=== PATIENT | female | born 1950 | race Caucasian/White ===

== ENCOUNTER 2016-04-03 23:34 | Inpatient (IN) ==
[2016-04-04 00:10] LABS: Basophils % 0.4 %; Eosinophils % 1.3 %; Hemoglobin 9.1 g/dL (11.5-15.4); Monocytes % 5.2 %
[2016-04-04 00:12] LABS: Eosinophils # 0.1 K/mcL (0.0-0.6); Hematocrit 31.9 % (35.3-44.9); Immature Granulocytes % 0.3 % (0-4); Lymphocytes # 2.3 K/mcL (0.6-4.6); Lymphocytes % 28.7 %; Mean Corpuscular HGB Conc 28.5 g/dL (31.6-35.5); Mean Corpuscular Volume 80.8 fL (83.0-100.0); Mean Platelet Volume 9.4 fL (9.4-12.4); Monocytes # 0.4 K/mcL (0.0-1.3); Neutrophils # 5.1 K/mcL (1.6-8.9); Platelet Count 310 K/mcL (140-400); Red Blood Count 3.95 M/mcL (3.82-4.97); Red Cell Distribution Width 19.2 % (11.5-14.5); Segmented Neutrophils % 64.1 %
[2016-04-04 00:22] LABS: Calcium 12.1 mg/dL (8.6-10.8); Potassium 4.2 mEq/L (3.5-4.5)
[2016-04-04 00:22] LABS: Bilirubin,Urine Negative (Negative); Blood,Urine Large (Negative); Clarity,Urine Cloudy (Clear); Color,Urine Yellow (Yellow); Glucose,Urine (UA) Normal (Normal); Ketones,Urine Negative (Negative); Leukocyte Esterase,Urine Negative (Negative); Nitrite,Urine Negative (Negative); Protein,Urine Negative (Neg-Trace); Specific Gravity,Urine 1.011 (1.010-1.025); Urobilinogen,Urine Normal (Normal)
--- NOTE | 2016-04-04 00:23 | Emergency Department Note ---
Disposition Clinical Impression: Lung mass, Hypercalcemia, Renal insufficiency Disposition: Admitted As Inpatient Condition: Fair SOB HPI - General Chief Complaint: ED Shortness of Breath/Dyspnea Stated Complaint: hypotension/hypoxia Time Seen by Provider: 04/03/16 23:59 Source: patient, EMS Limitations: no limitations Nursing Notes Reviewed: Yes Vital Signs Reviewed: Yes - History of Present Illness 65-year-old female who lives in an assisted living facility and has a history significant for dementia presents to the emergency department after a reported episode of hypoxia and low blood pressure. She has a known left upper lobe lung mass that has not been biopsied or treated. Patient is able to give very little history due to her baseline dementia. In the emergency department she is maintaining her oxygen saturations with nonlabored breathing. She denies any pain in the chest or abdomen. She is resting comfortably in bed. - Related Data Home Medications Medication Instructions Recorded Confirmed Aspirin Enteric Coated [Aspirin EC] 81 mg PO DAILY 12/31/14 02/05/16 Docusate [Colace] 100 mg PO HS 12/31/14 02/05/16 Donepezil [Aricept] 10 mg PO HS 12/31/14 02/05/16 Memantine [Namenda] 10 mg PO BID 12/31/14 02/05/16 Multivitamin/Iron/Folic Acid 1 each PO DAILY 12/31/14 02/05/16 [Centrum Complete Multivit Tab] Latanoprost [Xalatan] 1 drop BOTH EYES HS 11/30/15 02/05/16 Quetiapine Fumarate [Seroquel] 400 mg PO HS 11/30/15 02/05/16 Tizanidine HCl 2 mg PO BID PRN 11/30/15 02/05/16 TraMADol [Ultram] 50 mg PO BID 11/30/15 02/05/16 Acetaminophen [Tylenol Arthritis] 650 mg PO QAM PRN 02/05/16 02/05/16 Previous Rx's Medication Instructions Recorded Atorvastatin [Lipitor] 20 mg PO HS #30 tablet 02/05/16 Allergies Allergy/AdvReac Type Severity Reaction Status Date / Time Sulfa (Sulfonamide Allergy Anaphylaxis Verified 02/05/16 11:02 Antibiotics) Mantoux Allergy See Uncoded 04/03/16 23:44 Comments Limitations: ROS unobtainable due to patients medical condition Past Medical History - Past Medical History Medical history: Reports: dementia, glaucoma Surgical history: Reports: no surgical history Psychiatric history: Reports: other - Social History Smoking Status: Current every day smoker Smokeless Tobacco Status: No Alcohol use: Reports: none Drug use: Reports: none Physical Exam General: Cachectic appearing female, awake in bed who appears much older than her stated age Cardiovascular: Regular rhythm with tachycardia. S1, S2. No murmurs, rubs or gallops. Respiratory: No respiratory distress. Breathing unlabored. No wheezing rales or rhonchi auscultated. 96% on 2 L nasal cannula. Abdomen: Soft, nontender. No guarding, rebound or rigidity. Normal bowel sounds throughout. No palpable organomegaly Eyes: Pupils equally round and reactive to light, extraocular muscles intact, conjunctiva clear HENT: Normocephalic, no signs of head injury. No oral mucosal lesions. Moist mucous membranes Neuro: Cranial nerves intact. No motor or sensory deficit. Musculoskeletal: No joint tenderness or swelling. No signs of DVT. Skin: No lesions. No diaphoresis. Normal turgor. Normal color Psych: Patient has dementia but is calm and comfortable - General Limitations: no limitations General appearance: alert Course Course Narrative: Presents to the emergency department with respiratory distress and reported hypoxia. In the emergency department she is having no respiratory distress and is maintaining her oxygen saturation on supplemental oxygen. She has a history of dementia and lives in an assisted living facility. After reviewing her chart about 2 months ago she was in the hospital had a CT scan which showed a large left upper lobe mass that was partially obstructing her left upper lobe bronchus. A repeat CT scan today shows enlargement of that mass with now complete obstruction of that left upper lobe bronchus which is likely the cause of her symptoms. She has acute renal insufficiency with a creatinine of 1.6. She is hypercalcemic at 12.1. Her elevated calcium made be related to hormone producing lung cancer. [facility] she is a full code. She is afebrile, appears well and I do not suspect an infectious source. Plan to admit for respiratory distress, hypercalcemia, acute renal insufficiency. I discussed this with the on-call hospitalist, Dr. Evans to excess for admission, no further orders at this time. Vital Signs Temperature 97.7 F 04/03/16 23:38 Pulse Rate 113 01/04/17 23:38 Respiratory Rate 16 04/03/16 23:38 Blood Pressure 99/71 04/03/16 23:38 O2 Sat by Pulse Oximetry 93 L 04/03/16 23:38 Temperature 97.7 F 04/03/16 23:38 Pulse Rate 105 04/04/16 02:07 Respiratory Rate 20 04/04/16 02:24 Blood Pressure 98/64 04/04/16 02:24 O2 Sat by Pulse Oximetry 99 04/04/16 02:07 Oxygen Delivery Oxygen Delivery Room Air Shortness of Breath/Dyspnea - Lab Data Result diagrams: 04/04/16 00:00 04/04/16 00:00 Lab Results 04/04/16 04/04/16 04/04/16 Range/Units 00:00 00:00 00:08 WBC 7.9 (4.3-11.1) K/mcL RBC 3.95 (3.82-4.97) M/mcL Hgb 9.1 L (11.5-15.4) g/dL Hct 31.9 L (35.3-44.9) % MCV 80.8 L (83.0-100.0) fL MCH 23.0 L (28.0-33.3) pg MCHC 28.5 L (31.6-35.5) g/dL RDW 19.2 H (11.5-14.5) % Plt Count 310 (140-400) K/mcL MPV 9.4 (9.4-12.4) fL Immature Gran % 0.3 (0-4) % Seg Neutrophils % 64.1 % Lymphocytes % 28.7 % Monocytes % 5.2 % Eosinophils % 1.3 % Basophils % 0.4 % Neutrophils # 5.1 (1.6-8.9) K/mcL Lymphocytes # 2.3 (0.6-4.6) K/mcL Monocytes # 0.4 (0.0-1.3) K/mcL Eosinophils # 0.1 (0.0-0.6) K/mcL Basophils # 0.0 (0.0-0.2) K/mcL Platelet Estimate Normal (Normal) Hypochromasia Present A (Not Present) Anisocytosis 1+ A (Not Present) Microcytosis Present A (Not Present) Sodium 140 (136-145) mEq/L Potassium 4.2 (3.5-4.5) mEq/L Chloride 106 (98-109) mEq/L Carbon Dioxide 26 (19-29) mEq/L BUN 42 H (7-20) mg/dL Creatinine 1.68 H (0.57-1.11) mg/dL Est GFR ( Amer) 37 L (> 60) Est GFR (Non-Af Amer) 31 L (> 60) BUN/Creatinine Ratio 25 (6-26) Glucose 103 H (70-99) mg/dL Calculated Osmolality 301 H (280-300) Calcium 12.1 H (8.6-10.8) mg/dL Urine Color Yellow (Yellow) Urine Clarity Cloudy A (Clear) Urine pH 7.0 (5.0-8.0) pH Units Ur Specific [place] 1.011 (1.010-1.025) Urine Protein Negative (Neg-Trace) mg/dL Urine Glucose (UA) Normal (Normal) mg/dL Urine Ketones Negative (Negative) mg/dL Urine Blood Large H (Negative) Urine Nitrite Negative (Negative) Urine Bilirubin Negative (Negative) Urine Urobilinogen Normal (Normal) mg/dL Ur Leukocyte Esterase Negative (Negative) Urine Microscopic RBC 50-100 H (0-3) per hpf Urine Microscopic WBC 0-3 (0-3) per hpf Ur Squamous Epith Cells Many H (None-Few) per lpf Urine Bacteria None Seen (None-Few) per hpf Hyaline Casts None Seen (None-Few) per lpf Ur Culture Indicated? NO (NO) - EKG Data EKG results narrative: EKG shows sinus tachycardia with a rate of 112 beats for minute. There is no ST elevation or depression. MA, QRS, QT interval within normal limits. Normal R wave progression. Normal axis. No ischemic T-wave changes. Attestation Statement - Attestation Attestation: I, Nicholas Yarbrough MD, personally performed a history and physical exam of the patient and discussed their management with the resident. I reviewed the resident's note and agree with the documented findings, medical decision making , and plan of care. 65-year-old female with a history of a left upper lobe lung mass referred here from a local senior living because of that of hypotension and hypoxia. In the emergency department the patient is awake and alert. She has dementia and is oriented to person and place but not time. She does not know why she is here. She is really unable to provide any significant history. On examination patient is a well-developed well-nourished female in no acute distress. No cysts or diaphoresis. Alert and oriented to person and place. Chest is nontender to palpation. Breath sounds are decreased bilaterally. Heart regular rate and rhythm. Abdomen soft and nontender with normal bowel sounds. Labs reviewed. CT of the chest shows significant increase in the left upper lobe mass with postobstructive changes. The hospitalist, Dr. Evans, was consulted and accepted admission of the patient.
[2016-04-04 00:24] LABS: Bacteria,Urine None Seen per hpf (None-Few); Hyaline Casts,Urine None Seen per lpf (None-Few); RBC,Urine 50-100 per hpf (0-3); Squamous Epithelial Cell,Urine Many per lpf (None-Few); WBC,Urine 0-3 per hpf (0-3)
[2016-04-04 00:33] LABS: Anisocytosis 1+ (Not Present)
[2016-04-04 00:34] LABS: Hypochromasia Present (Not Present); Microcytosis Present (Not Present); Platelet Estimate Normal (Normal)
[2016-04-04] MEDS ORDERED: 0.9 % Sodium Chloride 1,000 ML IV ONE ×2 (00:44→01:52)
[2016-04-04] MEDS ORDERED: 0.9 % Sodium Chloride 1,000 ML ONE (00:45)
--- NOTE | 2016-04-04 02:51 | Internal Med History&Physical ---
<Gee Gómez - Last Filed: 04/04/16 04:01> Date of Encounter: 04/04/16 Time of Encounter: 02:25 Assessment and Plan (1) Acute respiratory failure with hypoxia Current visit: Yes Status: Acute Desaturation to the 80s on room air, with good response to supplemental oxygen. Chest CT: Large left upper lobe mass measuring 9.6x8.9cm, previously measuring 6.7x8.8cm. The mass has resulted in encasement and occlusion of the left upper lobe bronchus. there are postobstructive changes in the HASEEB. Small patchy infiltrates within the left lower lobe posteriorly may represent developing pneumonia. Small metastasis less likely. Moderate COPD. Will give the patient supplemental oxygen and keep her on continuous pulse ox. Will treat empirically for HCAP with levaquin and zosyn. Will hold vancomycin at this time due to JAKOB. Albuterol PRN and mucinex. Blood cultures and sputum cultures pending. (2) Acute kidney injury Current visit: Yes Status: Acute Creatinine currently 1.68 without history of CKD. Patient was given 2L fluid in the ED. Will continue maintenance fluid and monitor. (3) Anemia Current visit: Yes Status: Acute Current hemoglobin 9.1 with chronic anemia demonstrating increased RDW, decreased MCV, hypochromasia, and microcytosis. Will order iron studies and continue to monitor. Consider transfusion if worsening with fluid repletion or patient becomes symptomatic. Consider parenteral iron pending iron studies to replete stores. Qualifiers: Anemia type: iron deficiency Iron deficiency anemia type: unspecified iron deficiency Qualified Code(s): D50.9 - Iron deficiency anemia, unspecified (4) Hypercalcemia Current visit: Yes Status: Acute Patient is asymptomatic at this point. Possible due to hormone secreting tumor. Will order labs: PTH and PTHrP Will continue fluids. Considerations for calcitonin, Zometa, or furosemide with fluids if no improvement. (5) Alzheimer's dementia Current visit: Yes Status: Acute Continue home medications. Qualifiers: Alzheimer's disease onset: early-onset Dementia behavioral disturbance: with behavioral disturbance Qualified Code(s): G30.0 - Alzheimer's disease with early onset; F02.81 - Dementia in other diseases classified elsewhere with behavioral disturbance (6) COPD (chronic obstructive pulmonary disease) Current visit: No Status: Chronic Not on home oxygen. In acute exacerbation secondary to possible HCAP vs. postobstructive change from left upper lob mass obstructing left upper lobe bronchus. Qualifiers: COPD type: emphysema Emphysema type: centrilobular Qualified Code(s): J43.2 - Centrilobular emphysema (7) Lung mass Current visit: Yes Status: Chronic Known mass in left upper lobe. Previously did not want any brochoscopy or biopsy. (8) DVT prophylaxis Current visit: Yes Status: Acute Heparin SQ 5000 units Q12hr Protonix for DVT prophylaxis. Internal Medicine - H&P: HPI Chief complaint: dsypnea, hypotension Admitted From: Emergency Dept Plans for Post Hospital Care: Transfer Long-Term Facility History of present illness: Ms. Suarez is a 65 year old female with PMH of pulmonary mass, alzheimers dementia, glaucoma, COPD, and diabetes who was brought into the emergency department for hypoxia and hypotension. The patient is a difficult historian due to her baseline mental status. Most of the history is obtained by medical records. The patient lives in an assisted living facility and was noted to be saturating in the 80s on room air and be hypotensive and was therefore brought in for evaluation. The patient has a known left upper lobe mass that has not been biopsied or treated, and has increased in size from previous chest xray on 02/03. The patient states she is having a cough that is productive of sputum that is orange for the past month. Other review of systems is unobtainable. Past Med Surg Social Fam HX - Past Medical History Medical history: COPD, dementia, diabetes, glaucoma Psychiatric history: other - Past Surgical History Surgical History: no surgical history - Social History Smoking Status: Current every day smoker Smokeless Tobacco Status: No Alcohol use: none Drug use: none - Family History Mother Living Status: Age at : 44 Hx Family Cardiac Disorders: Yes (mother) Hx Family Respiratory Disorders: Yes (mother) Hx Family Cancer: No Hx Family GI Disorders: No Hx Family Genitourinary Disorders: No Hx Family Endocrine Disorder: No Hx Family Musculoskeletal Disorders: No Hx Family Neuromuscular Disorders: No Hx Family Neurologic Disorders: No Hx Family HEENT Disorders: No Hx Family Autoimmune Disorders: No Hx Family Reproductive Disorders: No Hx Family Psychosocial Disorders: No Internal Medicine - H&P: Meds Aspirin Enteric Coated [Aspirin EC] 81 mg PO DAILY 12/31/14 [History] Docusate [Colace] 100 mg PO HS 12/31/14 [History] Donepezil [Aricept] 10 mg PO HS 12/31/14 [History] Memantine [Namenda] 10 mg PO BID 12/31/14 [History] Multivitamin/Iron/Folic Acid [Centrum Complete Multivit Tab] 1 each PO DAILY 06/12 [History] Latanoprost [Xalatan] 1 drop BOTH EYES HS 11/30/15 [History] Quetiapine Fumarate [Seroquel] 200 mg PO HS 11/30/15 [History] Tizanidine HCl 2 mg PO BID PRN 11/30/15 [History] TraMADol [Ultram] 50 mg PO BID 11/30/15 [History] Acetaminophen [Tylenol Arthritis] 650 mg PO DAILY PRN 02/05/16 [History] Atorvastatin [Lipitor] 20 mg PO HS #30 tablet 02/05/16 [Rx] Collagenase Oint [Santyl] 1 appl TP DAILY 04/04/16 [History] Polyethylene Glycol 3350 [MiraLAX] 17 gm PO QAM 04/04/16 [History] Promethazine [Phenergan] 25 mg PO Q8HR PRN 04/04/16 [History] Allergies Sulfa (Sulfonamide Antibiotics) Allergy (Verified 02/05/16 11:02) Anaphylaxis Mantoux Allergy (Uncoded 04/03/16 23:44) See Comments ROS unobtainable: due to mental status All Systems PM: A 10-system review of systems was performed and is negative for pertinent findings except as documented above in the HPI. Review of systems: Patient was able to state she has a cough productive of orange sputum. - Constitutional Vitals: Temp Pulse Resp BP Pulse Ox 97.7 F 105 20 98/64 99 04/03/16 23:38 04/04/16 02:07 04/04/16 02:24 04/04/16 02:24 04/04/16 02:07 General appearance: Present: cachectic, A&O X 1 (To person) - Head Head exam: Present: atraumatic, normocephalic - Eye Eye exam: Present: PERRL, conjuntiva pink, sclera anicteric Pupils: Present: PERRL - Neck Neck exam general surgery: Present: supple, trachea midline. Absent: lymphadenopathy - Respiratory Respiratory exam: Present: CTAB. Absent: accessory muscle use, rales, rhonchi, wheezes - Cardiovascular Cardiovascular exam: Present: +S1, +S2, tachycardia. Absent: diastolic murmur, gallop, rubs, systolic murmur - GI/Abdominal GI/Abdominal exam: Present: normal bowel sounds, soft, no peritoneal signs. Absent: distended, tenderness - Extremities Exam Extremities exam: Present: warm, radial pulses palpable and symetrical. Absent : calf tenderness, cyanotic, pedal edema - Neurological Exam Neurological exam: Present: CN II-XII intact, oriented X3, no focal deficits. Absent: pronater drift, facial droop, speech deficit Additional comments: The patient exhibited some neglect of the left upper extremity, but was noted to be moving her blanket of her bed with the left arm. When asked to squeeze my fingers to assess for upper extremity strength she attempted to squeeze both hands with her right arm. - Skin Skin exam: Present: dry, intact Internal Med - H&P Results - Labs CBC & Chem 7: 04/04/16 00:00 04/04/16 00:00 - Attending Attestation I examined this patient and my medical decision-making was reviewed with the PICKER TENDER/PA/Advanced Practice Nurse/Resident Physician. I agree with the documented findings, disposition and treatment plan as described except to the extent set forth below. <Khoi Evans - Last Filed: 04/05/16 02:33> Date of Encounter: 04/04/16 Assessment and Plan (1) Acute and chronic respiratory failure with hypoxia Current visit: Yes Status: Acute . (2) COPD (chronic obstructive pulmonary disease) with emphysema Current visit: Yes Status: Chronic . Qualifiers: Emphysema type: centrilobular Qualified Code(s): J43.2 - Centrilobular emphysema (3) Healthcare-associated pneumonia Current visit: Yes Status: Acute . (4) Postobstructive pneumonia Current visit: Yes Status: Acute . (5) Mass of upper lobe of left lung Current visit: Yes Status: Chronic . (6) Alzheimer's dementia with behavioral disturbance Current visit: Yes Status: Chronic . Qualifiers: Alzheimer's disease onset: unspecified onset Qualified Code(s): G30.8 - Other Alzheimer's disease; F02.81 - Dementia in other diseases classified elsewhere with behavioral disturbance (7) Adult failure to thrive syndrome Current visit: Yes Status: Acute . (8) Malignant cachexia Current visit: Yes Status: Acute . (9) Acute chest wall pain Current visit: Yes Status: Acute . (10) Chest pain, rule out acute myocardial infarction Current visit: Yes Status: Acute . (11) Chest pain with low risk of acute coronary syndrome Current visit: Yes Status: Acute . (12) Hypercalcemia of malignancy Current visit: Yes Status: Acute . (13) Acute kidney injury superimposed on CKD Current visit: Yes Status: Acute . (14) Systemic inflammatory response syndrome (SIRS) Current visit: Yes Status: Acute . (15) Sepsis Current visit: Yes Status: Acute . Qualifiers: Sepsis type: sepsis due to unspecified organism Qualified Code(s): A41.9 - Sepsis, unspecified organism (16) Sepsis associated hypotension Current visit: Yes Status: Acute . (17) Microcytic hypochromic anemia Current visit: Yes Status: Acute . (18) Microhematuria Current visit: Yes Status: Acute . (19) Decompensated COPD with exacerbation (chronic obstructive pulmonary disease ) Current visit: Yes Status: Acute . (20) Alzheimer's dementia Current visit: Yes Status: Acute Qualifiers: Alzheimer's disease onset: early-onset Dementia behavioral disturbance: with behavioral disturbance Qualified Code(s): G30.0 - Alzheimer's disease with early onset; F02.81 - Dementia in other diseases classified elsewhere with behavioral disturbance (21) Cancer associated pain Current visit: Yes Status: Acute . (22) Tobacco abuse Current visit: Yes Status: Chronic . (23) Syncope Current visit: Yes Status: Acute . Qualifiers: Syncope type: vasovagal syncope Qualified Code(s): R55 - Syncope and collapse (24) Dehydration, severe Current visit: Yes Status: Acute . (25) Psychotic affective disorder Current visit: Yes Status: Chronic . Internal Medicine - H&P: HPI History of present illness: Ms. Suarez is a 65 year old female. The patient was visited and interviewed and examined. I examined this patient and my medical decision-making was reviewed with the Resident Physician. I agree with the documented findings, disposition and treatment plan as described except to the extent set forth below. Laboratory and radiographic data base was reviewed and considered and discussed. Pertinent ancillary medical records including a CW and PCI documentation, when available, was reviewed and considered. Given the patient's presenting concerns, past medical history, clinical findings and symptoms, she is admitted at this time to undergo further evaluation and disposition. Orders were written as per the computerized physician video recorder mechanic system...................................... All Systems PM: A 10-system review of systems was performed and is negative for pertinent findings except as documented above in the HPI. - Constitutional Vitals: Temp Pulse Resp BP Pulse Ox 97.7 F 74 18 91/60 96 04/04/16 21:47 04/04/16 21:47 04/04/16 21:47 04/04/16 21:47 04/04/16 21:47 Internal Med - H&P Results - Labs CBC & Chem 7: 04/04/16 00:00 04/04/16 00:00 - ABG Interpretation ABG results: 04/04/16 08:30 VBG pH 7.34 VBG pCO2 46 VBG pO2 57 H VBG HCO3 24.8 - Impressions Vital Signs Temp Pulse Resp BP Pulse Ox 04/04/16 21:47 97.7 F 74 18 91/60 96 04/04/16 15:48 97.3 F L 72 20 94/62 93 L 04/04/16 11:12 98.2 F 85 18 95/64 96 04/04/16 09:00 92 L 04/04/16 07:34 90/61 04/04/16 07:28 98.7 F 94 18 81/56 89 L 04/04/16 03:24 97.9 F 109 18 103/65 93 L 04/04/16 02:24 20 98/64 04/04/16 02:07 105 20 102/61 99 Intake and Output 04/04/16 04/04/16 04/05/16 15:59 23:59 07:59 Intake Total 2260 / 2260 1000 / 1000 Output Total 0 / 0 Balance 2260 / 2260 1000 / 1000 Intake: IV Fluids 600 / 600 1000 / 1000 0.9 % Sodium Chloride 1, 900 / 900 000 ML @ 125 mls/hr IVC . Q8H [facility] Rx#:[id number] Aredia 30 MG In 0.9 % 500 / 500 Sodium Chloride 500 ML @ 225 mls/hr IVPB ONCE ONE Rx#:[id number] Zosyn 3.375 GM In 100 / 100 100 / 100 Dextrose 5% (Minibag+) 100 ML 100 ML @ 25 mls/hr IVPB Q8HR [facility] Rx#: [id number] Oral 1660 / 1660 Output: Urine 0 / 0 Other: # Urine Diapers 1 04/04/16 08:30 VBG pH 7.34 VBG pCO2 46 VBG pO2 57 H VBG HCO3 24.8 Abnormal lab results Hgb 9.1 g/dL (11.5-15.4) L 04/04/16 00:00 Hct 31.9 % (35.3-44.9) L 04/04/16 00:00 MCV 80.8 fL (83.0-100.0) L 04/04/16 00:00 MCH 23.0 pg (28.0-33.3) L 04/04/16 00:00 MCHC 28.5 g/dL (31.6-35.5) L 04/04/16 00:00 RDW 19.2 % (11.5-14.5) H 04/04/16 00:00 Hypochromasia Present (Not Present) A 04/04/16 00:00 Anisocytosis 1+ (Not Present) A 04/04/16 00:00 Microcytosis Present (Not Present) A 04/04/16 00:00 ESR 83 mm/hr (0-15) H 04/04/16 08:30 VBG pO2 57 mmHg (25-40) H 04/04/16 08:30 BUN 42 mg/dL (7-20) H 04/04/16 00:00 Creatinine 1.68 mg/dL (0.57-1.11) H 04/04/16 00:00 Est GFR ( Amer) 37 (> 60) L 04/04/16 00:00 Est GFR (Non-Af Amer) 31 (> 60) L 04/04/16 00:00 Glucose 103 mg/dL (70-99) H 04/04/16 00:00 POC Glucose 99 (58-89) H 04/04/16 07:24 Calculated Osmolality 301 (280-300) H 04/04/16 00:00 Calcium 12.1 mg/dL (8.6-10.8) H 04/04/16 00:00 Ionized Calcium 1.48 mmol/L (1.15-1.35) H 04/04/16 08:30 C-Reactive Protein 120 mg/L (Less than 5) H 04/04/16 08:30 Urine Clarity Cloudy (Clear) A 04/04/16 00:08 Urine Blood Large (Negative) H 04/04/16 00:08 Urine Microscopic RBC 50-100 per hpf (0-3) H 04/04/16 00:08 Ur Squamous Epith Cells Many per lpf (None-Few) H 04/04/16 00:08 Allergies Allergy/AdvReac Type Severity Reaction Status Date / Time Sulfa (Sulfonamide Allergy Anaphylaxis Verified 02/05/16 11:02 Antibiotics) Mantoux Allergy See Uncoded 04/03/16 23:44 Comments Laboratory Results WBC 7.9 K/mcL (4.3-11.1) 04/04/16 00:00 RBC 3.95 M/mcL (3.82-4.97) 04/04/16 00:00 Hgb 9.1 g/dL (11.5-15.4) L 04/04/16 00:00 Hct 31.9 % (35.3-44.9) L 04/04/16 00:00 MCV 80.8 fL (83.0-100.0) L 04/04/16 00:00 MCH 23.0 pg (28.0-33.3) L 04/04/16 00:00 MCHC 28.5 g/dL (31.6-35.5) L 04/04/16 00:00 RDW 19.2 % (11.5-14.5) H 04/04/16 00:00 Plt Count 310 K/mcL (140-400) 04/04/16 00:00 MPV 9.4 fL (9.4-12.4) 04/04/16 00:00 Immature Gran % 0.3 % (0-4) 04/04/16 00:00 Seg Neutrophils % 64.1 % 04/04/16 00:00 Lymphocytes % 28.7 % 04/04/16 00:00 Monocytes % 5.2 % 04/04/16 00:00 Eosinophils % 1.3 % 04/04/16 00:00 Basophils % 0.4 % 04/04/16 00:00 Neutrophils # 5.1 K/mcL (1.6-8.9) 04/04/16 00:00 Lymphocytes # 2.3 K/mcL (0.6-4.6) 04/04/16 00:00 Monocytes # 0.4 K/mcL (0.0-1.3) 04/04/16 00:00 Eosinophils # 0.1 K/mcL (0.0-0.6) 04/04/16 00:00 Basophils # 0.0 K/mcL (0.0-0.2) 04/04/16 00:00 Platelet Estimate Normal (Normal) 04/04/16 00:00 Hypochromasia Present (Not Present) A 04/04/16 00:00 Anisocytosis 1+ (Not Present) A 04/04/16 00:00 Microcytosis Present (Not Present) A 04/04/16 00:00 ESR 83 mm/hr (0-15) H 04/04/16 08:30 VBG pH 7.34 pH Units (7.32-7.42) 04/04/16 08:30 VBG pCO2 46 mmHg (41-51) 04/04/16 08:30 VBG pO2 57 mmHg (25-40) H 04/04/16 08:30 VBG HCO3 24.8 mEq/L (21-27) 04/04/16 08:30 Sodium 140 mEq/L (136-145) 04/04/16 00:00 Potassium 4.2 mEq/L (3.5-4.5) 04/04/16 00:00 Chloride 106 mEq/L (98-109) 04/04/16 00:00 Carbon Dioxide 26 mEq/L (19-29) 04/04/16 00:00 BUN 42 mg/dL (7-20) H 04/04/16 00:00 Creatinine 1.68 mg/dL (0.57-1.11) H 04/04/16 00:00 Est GFR ( Amer) 37 (> 60) L 04/04/16 00:00 Est GFR (Non-Af Amer) 31 (> 60) L 04/04/16 00:00 BUN/Creatinine Ratio 25 (6-26) 04/04/16 00:00 Glucose 103 mg/dL (70-99) H 04/04/16 00:00 POC Glucose 99 (58-89) H 04/04/16 07:24 Est Mean Plasma Glucose 114 mg/dl 04/04/16 08:30 Hemoglobin A1c 5.6 % (-5.6) 04/04/16 08:30 Calculated Osmolality 301 (280-300) H 04/04/16 00:00 Calcium 12.1 mg/dL (8.6-10.8) H 04/04/16 00:00 Ionized Calcium 1.48 mmol/L (1.15-1.35) H 04/04/16 08:30 C-Reactive Protein 120 mg/L (Less than 5) H 04/04/16 08:30 B-Natriuretic Peptide 72 pg/mL (0-100) 04/04/16 08:30 TSH 0.537 mcIU/mL (0.350-4.840) 04/04/16 08:30 PTH Intact 27.3 pg/ml (8.5-72.5) 04/04/16 08:30 Urine Color Yellow (Yellow) 04/04/16 00:08 Urine Clarity Cloudy (Clear) A 04/04/16 00:08 Urine pH 7.0 pH Units (5.0-8.0) 04/04/16 00:08 Ur Specific [place] 1.011 (1.010-1.025) 04/04/16 00:08 Urine Protein Negative mg/dL (Neg-Trace) 04/04/16 00:08 Urine Glucose (UA) Normal mg/dL (Normal) 04/04/16 00:08 Urine Ketones Negative mg/dL (Negative) 04/04/16 00:08 Urine Blood Large (Negative) H 04/04/16 00:08 Urine Nitrite Negative (Negative) 04/04/16 00:08 Urine Bilirubin Negative (Negative) 04/04/16 00:08 Urine Urobilinogen Normal mg/dL (Normal) 04/04/16 00:08 Ur Leukocyte Esterase Negative (Negative) 04/04/16 00:08 Urine Microscopic RBC 50-100 per hpf (0-3) H 04/04/16 00:08 Urine Microscopic WBC 0-3 per hpf (0-3) 04/04/16 00:08 Ur Squamous Epith Cells Many per lpf (None-Few) H 04/04/16 00:08 Urine Bacteria None Seen per hpf (None-Few) 04/04/16 00:08 Hyaline Casts None Seen per lpf (None-Few) 04/04/16 00:08 Ur Culture Indicated? NO (NO) 04/04/16 00:[address] 04/04/16 00:05 IMPRESSION: Large left upper lobe mass measuring 9.6 x 8.9 cm previously measuring 6.7 x 8.8 cm. The mass has resulted in encasement and occlusion of the left upper lobe bronchus. There are postobstructive changes within the left upper lobe. Small patchy infiltrates within the left lower lobe posteriorly which may represent developing pneumonia. Small metastatic lesions are considered less likely. Moderate COPD. Moderate-sized hiatal hernia. Stable small calculus within the upper pole of the left kidney. D/ / 04/04/2016 07:22:28 Reji Walters MD / bre Interpreting Provider: Reji Walters MD - Attending Attestation My signature below is to certify that this patient is under my care and that I, or the Resident Physician working with me, has had a [id number] encounter with this patient. Plan of care has been reviewed and discussed in detail with the patient. Questions answered to her satisfaction and reassurance. Advance care directive discussion briefly addressed. The patient declare specific healthcare restrictions at this time. Outpatient medications schedules will be reviewed, confirmed and facilitated as appropriate. Reconciliation of home treatments including adjustments, substitutions and reintroduction into the treatment regimen will address necessary maintenance therapies for chronic pre-existing medical conditions. Smoking cessation counseling briefly addressed. Nicotine substitution will be provided during this hospitalization. Hospital course will be dependent on clinical findings, treatment response and potential consultative interventions. The patient is at risk for further acute clinical decline in mobility given her presenting chief complaint, clinical findings, frailty and associated comorbidities. Condition is serious. Prognosis is poor. CODE STATUS is DNR comfort care arrest.
[2016-04-04] MEDS ORDERED: *HR* Promethazine 25 MG/ML VIAL IVP PRN (03:34)
[2016-04-04] MEDS ORDERED: *HR* Morphine 2 MG/ML SYRINGE IVP PRN (03:34)
[2016-04-04] MEDS ORDERED: Acetaminophen 325 MG TABLET PO PRN (03:34)
[2016-04-04] MEDS ORDERED: Benzonatate 100 MG CAPSULE PO PRN (03:34)
[2016-04-04] MEDS ORDERED: Albuterol 2.5 MG/3 ML NEBULIZER IH PRN (03:34)
[2016-04-04] MEDS ORDERED: Naloxone 0.4 MG/ML INJ IVP PRN (03:34)
[2016-04-04] MEDS ORDERED: 0.9 % Sodium Chloride 1,000 ML IVC SCH (03:45)
[2016-04-04] MEDS: 0.9 % Sodium Chloride 1,000 ML IVC SCH ×3 (04:49→17:28)
[2016-04-04] MEDS: Levofloxacin 500 MG/100 ML 500 MG/100 ML BAG IVPB SCH (04:50)
[2016-04-04] MEDS: MethylPREDNISolone 40 MG/ML VIAL IVP SCH ×3 (05:39→17:41)
[2016-04-04] MEDS: *HR* Heparin 5,000 UNIT/ML VIAL SQ SCH ×2 (05:40→17:45)
[2016-04-04 08:39] LABS: VBG HCO3 24.8 mEq/L (21-27); VBG PH 7.34 pH Units (7.32-7.42)
--- NOTE | 2016-04-04 08:42 | Event Note ---
<Neto Heath - Last Filed: 04/04/16 14:40> Date of Encounter: 04/04/16 Time of Encounter: 08:25 Patient seen/eval at bedside, earlier H&P reviewed, discussed with night resident Dr. Gómez. Briefly, 65 yoF with Alzheimer's dementia, previously evaluated for large left upper lobe mass, roughly 6.7 x 8.8cm. Admitted from [facility] to [facility] 04/04/15 for hypoxemia, with interval Chest CT disclosing increase in mass, 9.8 x 8.9cm. Exam Pleasant, breathing on 2LNC, answering questions in short phrases, mainly 'yes' and 'no' Alert and oriented to self. Knows she is in hospital. When asked where she was at previously, answers "not the hospital." Unsure of month. HEENT: ATNC, EOMI, nonicteric, mucous membranes dry with tobacco stains. Neck: trachea midline, soft, no appreciable cervical LAD CV: S1 S2 regular, no mrg, radial pulses synchronous Resp: dim HASEEB, with end exp ronchi throughout, no wheeze Abd soft nt nd Ext: distal pulses intact, bilateral heel protectors We discussed her course. She denies any fever, but does endorse pleuritic chest discomfort. She affirms she does not want the pulmonary nodule to be biopsied. Discussed if we could contact her son, and she consents. I called both numbers listed in emergency contact for Bib Huber, a voice picked up both times and denies being him, also denies ever interacting with the healthcare system. Discussed with palliative team, appreciate their input in delineating goals of care. Hypercalcemia in setting of likely malignancy Cont IVF, Pamidronate 30mg x 1, monitor. Suspected post-obstructive pneumonia From ECF, consideration for health-care associated bacterial pneumonia. Cont broad spectrum empiric antibiotics, pending culture for deescalation. Dementia Cont Aricept <Obdulio Nunn - Last Filed: 04/04/16 18:10> Date of Encounter: 04/04/16 I examined this patient and my medical decision-making was reviewed with the TROPHY ASSEMBLER/PA/Advanced Practice Nurse/Resident Physician. I agree with the documented findings, disposition and treatment plan as described except to the extent set forth below. Follow palliative care recommendations. Poor prognosis.
[2016-04-04 08:44] LABS: Ionized Calcium 1.48 mmol/L (1.15-1.35)
[2016-04-04] MEDS: Aspirin Enteric Coated 81 MG Tablet PO SCH (09:06)
[2016-04-04 09:09] LABS: Hemoglobin A1C 5.6 %
[2016-04-04] MEDS: Nicotine 21 MG PATCH.TD24 TD SCH (09:10)
[2016-04-04] MEDS: Pantoprazole 40 MG VIAL IVP SCH (09:11)
[2016-04-04] MEDS: Piperacillin/Tazobactam 3.375 GM in D5% in Water (Mini-Bag+) 100 ML IVPB SCH ×2 (09:21→17:30)
[2016-04-04 10:23] LABS: Thyroid Stimulating Hormone 0.537 mcIU/mL (0.350-4.840)
[2016-04-04] MEDS ORDERED: Pamidronate 30 MG in 0.9 % Sodium Chloride 500 ML IVPB ONE (11:01)
--- NOTE | 2016-04-04 14:19 | Electrocardiograph Report ---
[facility] Test Date: 2016-04-03 Pat Name: Kamala Suarez Department: 105 Room: [facility] Gender: F Gifted Teacher: [id number] : 1950 Requested By: Alli Jaramillo Order Number: [id number] Reading MD: Vincent Caldwell Measurements Intervals [place] Rate: 112 P: 83 [place]: 176 QRS: 26 QRSD: 82 T: 91 QT: 322 QTc: 388 Interpretive Statements SINUS TACHYCARDIA POSSIBLE RIGHT ATRIAL ENLARGEMENT Electronically Signed On 04-04-16 14:18:13 EST by Vincent Caldwell
--- NOTE | 2016-04-04 15:31 | Palliative - Consult Note ---
Date of Encounter: 04/04/16 Time of Encounter: 15:00 - Assessment and Plan (1) Cancer associated pain Current Visit: Yes Status: Acute Assessment and plan: Patient did state that she has had pain in left upper chest. She has Oxycodone for moderate pain and Morphine if needed for severe pain. Has not utilized. Will D/W nursing staff to question and offer pain medication occasionally. (2) Constipation by delayed colonic transit Current Visit: Yes Status: Acute Assessment and plan: Continue stool softeners and monitor BM's. (3) Counseling regarding advanced care planning and goals of care Current Visit: Yes Status: Acute Assessment and plan: Patient is pleasantly confused and can only tell me her name. Contacted [facility] and telephone listed for next of kin, Lauro has been unreachable and they have not seen him in at least 3 months. F nurse stated that he did used to visit her occasionally, and that was the only visitor she has had. They had been wanting to contact him to discuss code status and possible hospice enrollment. We have touched base with [place] [employer] who are assisting in attempt to locate pt son, and are awaiting some return phone calls from court system. Will continue to follow. (4) Lung mass Current Visit: Yes Status: Chronic (5) COPD (chronic obstructive pulmonary disease) Current Visit: No Status: Chronic Qualifiers: COPD type: emphysema Emphysema type: centrilobular Qualified Code(s): J43.2 - Centrilobular emphysema (6) Acute respiratory failure with hypoxia Current Visit: Yes Status: Acute Palliative-CN HPI - Data of Consult Consult date: 04/04/16 Requesting Physician: Obdulio Nunn Primary Care Provider: PCP NO - Consult Narrative History of present illness: Ms. Suarez is a 65 year old female who is a resident of [facility] and has a history of dementia, who presented with hypoxia and hypotension. She has a known lung mass which has expanded in size with comparison of last CT scan. By record review, pt refused any workup or treatment for the assumed lung cancer. Upon my visit, she is awake and alert, states she is in "[place]". Cannot tell me where she resides or why she is here. Cannot any any questions related to medical history. She does state she has intermittent chest pain, but cannot describe it or tell me intensity. Denies nausea or shortness of breath. Incontinent and wearing attends. Currently on room air. No family is present. CC: Obdulio Nunn Past Med Surg Social Fam HX - Past Medical History Medical history: COPD, dementia, diabetes, glaucoma Psychiatric history: other - Past Surgical History Surgical History: no surgical history - Social History Smoking Status: Current every day smoker Smokeless Tobacco Status: No Alcohol use: none Drug use: none - Family History Mother Living Status: Age at : 44 Hx Family Cardiac Disorders: Yes (mother) Hx Family Respiratory Disorders: Yes (mother) Hx Family Cancer: No Hx Family GI Disorders: No Hx Family Genitourinary Disorders: No Hx Family Endocrine Disorder: No Hx Family Musculoskeletal Disorders: No Hx Family Neuromuscular Disorders: No Hx Family Neurologic Disorders: No Hx Family HEENT Disorders: No Hx Family Autoimmune Disorders: No Hx Family Reproductive Disorders: No Hx Family Psychosocial Disorders: No Medications and Allergies Aspirin Enteric Coated [Aspirin EC] 81 mg PO DAILY 12/31/14 [History] Docusate [Colace] 100 mg PO HS 12/31/14 [History] Donepezil [Aricept] 10 mg PO HS 12/31/14 [History] Memantine [Namenda] 10 mg PO BID 12/31/14 [History] Multivitamin/Iron/Folic Acid [Centrum Complete Multivit Tab] 1 each PO DAILY 06/12 [History] Latanoprost [Xalatan] 1 drop BOTH EYES HS 11/30/15 [History] Quetiapine Fumarate [Seroquel] 200 mg PO HS 11/30/15 [History] Tizanidine HCl 2 mg PO BID PRN 11/30/15 [History] TraMADol [Ultram] 50 mg PO BID 11/30/15 [History] Acetaminophen [Tylenol Arthritis] 650 mg PO DAILY PRN 02/05/16 [History] Atorvastatin [Lipitor] 20 mg PO HS #30 tablet 02/05/16 [Rx] Collagenase Oint [Santyl] 1 appl TP DAILY 04/04/16 [History] Polyethylene Glycol 3350 [MiraLAX] 17 gm PO QAM 04/04/16 [History] Promethazine [Phenergan] 25 mg PO Q8HR PRN 04/04/16 [History] Allergies Sulfa (Sulfonamide Antibiotics) Allergy (Verified 02/05/16 11:02) Anaphylaxis Mantoux Allergy (Uncoded 04/03/16 23:44) See Comments ROS unobtainable: due to mental status Palliative Care-Exam - Constitutional Vitals: Temp Pulse Resp BP Pulse Ox 98.2 F 85 18 95/64 96 04/04/16 11:12 04/04/16 11:12 04/04/16 11:12 04/04/16 11:12 04/04/16 11:12 General appearance: Present: no acute distress, thin - Head Head Exam: Present: normal inspection, normocephalic - Eye Eye exam: Present: normal appearance, PERRL - Expanded Respiratory Exam Location: decreased breath sounds: Left, Lower - Cardiovascular Cardiovascular exam: Present: +S1, +S2 - GI/Abdominal Exam GI/Abdominal exam: Present: normal bowel sounds, soft - Additional comments: Incontinent - Extremities Exam Extremities exam: Present: normal capillary refill, normal inspection - Neurological Exam Neurological exam: Present: alert Additional comments: Oriented to name only, pleasantly confused - Skin Skin exam: Present: dry, normal color, warm Internal Medicine - CN: Reslt - Labs CBC & Chem 7: 04/04/16 00:00 04/04/16 00:00 Consult Discharge Plan - Plan Referrals: Tate Finch MD [Non-Partnered Physician] - (Please follow up as schedule... ) Palliative Quality Palliative Quality: Screen for Code Status: NA (Trying to reach next of kin), Screen for Goals of Care: NA (Awaiting next of kin), Screen for Pain: Yes, If Pain Regimen Started, Initiate Bowel Regimen: Yes, Screen for Nausea/Vomitting: Yes Code Status: 04/04/16 03:26 DNR [Resuscitation Status: Active] [RES] Routine Comment: Resuscitation Status: DNR-Comfort Care-Arrest
[2016-04-04] MEDS: Ferrous Sulfate Oral Soln 300 MG/5 ML UDC PO SCH (17:44)
--- NOTE | 2016-04-04 20:35 | Electrocardiograph Report ---
[facility] Test Date: 2016-04-04 Pat Name: LUIZ ALVAREZ Department: 112 Room: [facility] [place] Gender: F Mannequin Maker: [id number] : 1950 Requested By: Obdulio Nunn Order Number: [id number] Reading MD: Mihir Welsh MD Measurements Intervals [place] Rate: 93 P: 79 OK: 184 QRS: 64 QRSD: 85 T: 90 QT: 373 QTc: 424 Interpretive Statements SINUS RHYTHM WITH FREQUENT PREMATURE VENTRICULAR COMPLEXES Electronically Signed On 04-04-16 20:34:54 EST by Mihir Welsh MD
[2016-04-04] MEDS ORDERED: NON-FORMULARY MEDICATION 1 EACH EACH (Quetiapine Fumarate [Seroquel] 400 MG) PO SCH (21:00)
[2016-04-04] MEDS: Latanoprost 2.5 ML BOTTLE BOTH EYES SCH (23:00)
[2016-04-05] MEDS: Piperacillin/Tazobactam 3.375 GM in D5% in Water (Mini-Bag+) 100 ML IVPB SCH ×3 (00:33→17:18)
[2016-04-05] MEDS: MethylPREDNISolone 40 MG/ML VIAL IVP SCH ×4 (00:33→17:16)
[2016-04-05 04:59] LABS: Hemoglobin 8.2 g/dL (11.5-15.4)
[2016-04-05 05:00] LABS: Hematocrit 28.5 % (35.3-44.9); Immature Granulocytes % 0.4 % (0-4); Lymphocytes % 12.2 %; Mean Corpuscular HGB Conc 28.8 g/dL (31.6-35.5); Mean Corpuscular Hemoglobin 23.6 pg (28.0-33.3); Mean Corpuscular Volume 82.1 fL (83.0-100.0); Mean Platelet Volume 9.5 fL (9.4-12.4); Monocytes # 0.1 K/mcL (0.0-1.3); Monocytes % 1.3 %; Platelet Count 249 K/mcL (140-400); Red Blood Count 3.47 M/mcL (3.82-4.97); Red Cell Distribution Width 18.6 % (11.5-14.5); Segmented Neutrophils % 86.1 %
[2016-04-05] MEDS: Levofloxacin 500 MG/100 ML 500 MG/100 ML BAG IVPB SCH (05:07)
[2016-04-05 05:13] LABS: Potassium 3.6 mEq/L (3.5-4.5)
[2016-04-05 05:19] LABS: Albumin 1.7 g/dL (3.5-5.0); Calcium 9.7 mg/dL (8.6-10.8)
[2016-04-05 05:57] LABS: Lymphocytes # 0.7 K/mcL (0.6-4.6); Neutrophils # 4.6 K/mcL (1.6-8.9)
[2016-04-05] MEDS: *HR* Heparin 5,000 UNIT/ML VIAL SQ SCH ×2 (06:36→17:19)
[2016-04-05] MEDS: 0.9 % Sodium Chloride 1,000 ML IVC SCH ×2 (07:25→17:22)
[2016-04-05 07:46] LABS: Anisocytosis 1+ (Not Present); Hypochromasia Present (Not Present); Platelet Estimate Normal (Normal)
[2016-04-05] MEDS: Aspirin Enteric Coated 81 MG Tablet PO SCH (07:59)
[2016-04-05] MEDS: Pantoprazole 40 MG VIAL IVP SCH (08:00)
[2016-04-05] MEDS: Nicotine 21 MG PATCH.TD24 TD SCH (08:00)
[2016-04-05] MEDS: Ferrous Sulfate Oral Soln 300 MG/5 ML UDC PO SCH (08:01)
--- NOTE | 2016-04-05 09:11 | Internal Med Progress Note ---
<Neto Heath - Last Filed: 04/05/16 17:04> Date of Encounter: 04/05/16 Time of Encounter: 09:10 - Assessment and plan (1) Healthcare-associated pneumonia Current Visit: Yes Status: Acute Assessment and plan: Criteria with setting of ECF, along with Chest CT Large left upper lobe mass measuring 9.6 x 8.9 cm previously measuring 6.7 x 8.8 cm. The mass has resulted in encasement and occlusion of the left upper lobe bronchus. There are postobstructive changes within the left upper lobe. Suspect post-obstructive component as well. Vanc discontinued 04/05/16 Sputum ordered but may need to obtain via bronch. Cont Zosyn and Levaquin. (2) Hypercalcemia of malignancy Current Visit: Yes Status: Acute Assessment and plan: Suspect 2* to lung mass - probable squamous cell lung cancer. Received IVF, then pamidronate on 04/04/15 Calcium levels decreased. Cont to monitor. (3) Lung mass Current Visit: Yes Status: Acute Assessment and plan: Large left upper lobe mass measuring 9.6 x 8.9 cm previously measuring 6.7 x 8.8 cm. Discussed with Building Construction Supervisor Dr. Way. Per documentation, consent obtained by her son for bronchoscopy. Appreciate pulmonary service following. (4) Adult failure to thrive syndrome Current Visit: Yes Status: Acute Assessment and plan: Appreciate nutrition recs (5) Alzheimer's dementia Current Visit: Yes Status: Acute Assessment and plan: Cont Aricept Qualifiers: Alzheimer's disease onset: early-onset Dementia behavioral disturbance: with behavioral disturbance Qualified Code(s): G30.0 - Alzheimer's disease with early onset; F02.81 - Dementia in other diseases classified elsewhere with behavioral disturbance (6) DVT prophylaxis Current Visit: Yes Status: Acute Assessment and plan: Heparin 5000 U SC BID - Subjective Interval history: Patient seen/eval, her granddaughter is at bedside. Patient is more alert, tracking, states she would like chicken for lunch. She denies any fever, chills, chest discomfort, or difficulty breathing. - Constitutional Vitals: Temp Pulse Resp BP Pulse Ox 98.1 F 70 18 94/63 95 04/05/16 04:04 04/05/16 04:04 04/05/16 04:04 04/05/16 04:04 04/05/16 07:00 General appearance: Present: cachectic, A&O X 1 (To person) - Head Head exam: Present: atraumatic, normocephalic - Eye Eye exam: Present: EOMI, sclera anicteric - ENT ENT exam: Present: mucous membranes moist - Neck Neck exam general surgery: Present: supple, trachea midline - Respiratory Respiratory exam: Present: decreased breath sounds (decreased HASEEB). Absent: rhonchi, wheezes - Cardiovascular Cardiovascular exam: Present: +S1, +S2. Absent: JVD - Extremities Exam Extremities exam: Present: radial pulses palpable and symetrical. Absent: pedal edema Internal Medicine: Result - Labs CBC & Chem 7: 04/05/16 04:47 04/05/16 04:47 Labs: Short CBC 04/05/16 Range/Units 04:47 WBC 5.3 (4.3-11.1) K/mcL Hgb 8.2 L (11.5-15.4) g/dL Hct 28.5 L (35.3-44.9) % Plt Count 249 (140-400) K/mcL Neutrophils # 4.6 (1.6-8.9) K/mcL BMP 04/05/16 04:47 Sodium 135 L Potassium 3.6 Chloride 109 Carbon Dioxide 17 L BUN 32 H D Creatinine 1.19 H Glucose 150 H Calcium 9.7 D Liver Function 04/05/16 Range/Units 04:47 Albumin 1.7 L (3.5-5.0) g/dL - VTE Documentation of Mechanical Device: Intermittent pneumatic compression device Consult Discharge Plan - Plan Referrals: Tate Finch MD [Non-Partnered Physician] - (Pt is ECF at [facility] and will be returning to that facility on DC ) <Obdulio Nunn - Last Filed: 04/05/16 17:49> Date of Encounter: 04/05/16 - Constitutional Vitals: Temp Pulse Resp BP Pulse Ox 97.2 F L 69 18 107/69 92 L 04/05/16 15:42 04/05/16 15:42 04/05/16 15:42 04/05/16 15:42 04/05/16 15:42 Internal Medicine: Result - Labs CBC & Chem 7: 04/05/16 04:47 04/05/16 04:47 Labs: Short CBC 04/05/16 Range/Units 04:47 WBC 5.3 (4.3-11.1) K/mcL Hgb 8.2 L (11.5-15.4) g/dL Hct 28.5 L (35.3-44.9) % Plt Count 249 (140-400) K/mcL Neutrophils # 4.6 (1.6-8.9) K/mcL BMP 04/05/16 04:47 Sodium 135 L Potassium 3.6 Chloride 109 Carbon Dioxide 17 L BUN 32 H D Creatinine 1.19 H Glucose 150 H Calcium 9.7 D Liver Function 04/05/16 Range/Units 04:47 Albumin 1.7 L (3.5-5.0) g/dL - Attending Attestation I examined this patient and my medical decision-making was reviewed with the SURGICAL SUPPLIES STERILIZER/PA/Advanced Practice Nurse/Resident Physician. I agree with the documented findings, disposition and treatment plan as described except to the extent set forth below. Hyperlcaemia treated, lung mass under evaluation, bronchoscopy tomorrow.
--- NOTE | 2016-04-05 09:57 | Palliative Progress Note ---
Date of Encounter: 04/05/16 Time of Encounter: 10:35 - Assessment and plan (1) Cancer associated pain Current Visit: Yes Status: Acute Assessment and plan: Has Oxycodone for moderate pain - Morphine for severe pain. She has not utilized. Will D/C IV Morphine and leave Oxycodone PRN. (2) Malnutrition Current Visit: Yes Status: Acute Assessment and plan: Albumin 1.7. Weight appears fairly stable when compared to previous visits. Will add ensure supplements to meals. (3) Constipation by delayed colonic transit Current Visit: Yes Status: Acute Assessment and plan: Continue stool softeners and monitor BM's. None recorded since admission, will monitor and add laxative soon if no bowel movement. (4) Counseling regarding advanced care planning and goals of care Current Visit: Yes Status: Acute Assessment and plan: Long meeting with sonLauro and his . I showed them the CT chest obtained during this stay and the fact that pt refused biopsy last January and tumor has progressed. After lengthy discussion regarding clinical status, worsening dementia, so is quite adamant that he wants to proceed with biopsy and treatment options. We did discuss that after biopsy, it would be oncology to determine if she would be candidate for treatment options, and they may feel that in her condition, may not be able to tolerate treatment. Discussed code status - he is agreeable with DNRCC-Arrest, but wants to maintain aggressive care until the point of cardiac arrest, and he would like short term intubation if necessary. D/W resident Dr. Heath and discussed pulmonology consult. Bib Mckoy's telephone number is [phone] if needed to contact for consent. (5) Lung mass Current Visit: Yes Status: Chronic (6) COPD (chronic obstructive pulmonary disease) Current Visit: No Status: Chronic Qualifiers: COPD type: emphysema Emphysema type: centrilobular Qualified Code(s): J43.2 - Centrilobular emphysema (7) Acute respiratory failure with hypoxia Current Visit: Yes Status: Acute - Time Spent With Patient Total time spent is greater than 50% in coordination of care (as documented) at patient's floor/unit and/or counseling patient: - Subjective Interval history: Patient remains pleasantly confused, oriented to name only, is able to tell me her son's name. Son Lauro at bedside. She denies pain or other symptoms. Taking clear liquids. - Constitutional Vitals: Abnormal lab results RBC 3.47 M/mcL (3.82-4.97) L 04/05/16 04:47 Hgb 8.2 g/dL (11.5-15.4) L 04/05/16 04:47 Hct 28.5 % (35.3-44.9) L 04/05/16 04:47 MCV 82.1 fL (83.0-100.0) L 04/05/16 04:47 MCH 23.6 pg (28.0-33.3) L 04/05/16 04:47 MCHC 28.8 g/dL (31.6-35.5) L 04/05/16 04:47 RDW 18.6 % (11.5-14.5) H 04/05/16 04:47 Hypochromasia Present (Not Present) A 04/05/16 04:47 Anisocytosis 1+ (Not Present) A 04/05/16 04:47 Microcytosis Present (Not Present) A 04/04/16 00:00 ESR 83 mm/hr (0-15) H 04/04/16 08:30 VBG pO2 57 mmHg (25-40) H 04/04/16 08:30 Sodium 135 mEq/L (136-145) L 04/05/16 04:47 Carbon Dioxide 17 mEq/L (19-29) L 04/05/16 04:47 BUN 32 mg/dL (7-20) H D 04/05/16 04:47 Creatinine 1.19 mg/dL (0.57-1.11) H 04/05/16 04:47 Est GFR ( Amer) 56 (> 60) L 04/05/16 04:47 Est GFR (Non-Af Amer) 46 (> 60) L 04/05/16 04:47 BUN/Creatinine Ratio 27 (6-26) H 04/05/16 04:47 Glucose 150 mg/dL (70-99) H 04/05/16 04:47 POC Glucose 99 (58-89) H 04/04/16 07:24 Ionized Calcium 1.48 mmol/L (1.15-1.35) H 04/04/16 08:30 Iron 44 mcg/dL (50-170) L 04/05/16 04:47 Transferrin 128 mg/dL (180-382) L 04/05/16 04:47 Ferritin 279 ng/ml (5-204) H 04/05/16 04:47 C-Reactive Protein 120 mg/L (Less than 5) H 04/04/16 08:30 Albumin 1.7 g/dL (3.5-5.0) L 04/05/16 04:47 Prealbumin 10.0 mg/dL (16.0-38.0) L 04/05/16 04:47 Urine Clarity Cloudy (Clear) A 04/04/16 00:08 Urine Blood Large (Negative) H 04/04/16 00:08 Urine Microscopic RBC 50-100 per hpf (0-3) H 04/04/16 00:08 Ur Squamous Epith Cells Many per lpf (None-Few) H 04/04/16 00:08 General appearance: Present: no acute distress - Expanded Respiratory Exam Location: decreased breath sounds: Left, Lower, Upper - Cardiovascular Cardiovascular exam: Present: +S1, +S2 - GI/Abdominal GI/Abdominal exam: Present: normal bowel sounds, soft - Additional comments: Incontinent - Extremities Exam Extremities exam: Present: normal capillary refill, normal inspection - Neurological Exam Neurological exam: Present: alert, altered Additional comments: Oriented to name only. - Skin Skin exam: Present: dry, pallor, warm Palliative Quality Palliative Quality: Screen for Code Status: Yes (Trying to reach next of kin), Screen for Goals of Care: Yes (Awaiting next of kin), Screen for Pain: Yes, If Pain Regimen Started, Initiate Bowel Regimen: Yes, Screen for Nausea/Vomitting: Yes Code Status: 04/04/16 03:26 DNR [Resuscitation Status: Active] [RES] Routine Comment: Resuscitation Status: DNR-Comfort Care-Arrest - Labs CBC & Chem 7: 04/05/16 04:47 04/05/16 04:47 Labs: Laboratory Results - last 24 hr 04/04/16 04/04/16 04/05/16 08:30 08:30 04:47 WBC 5.3 RBC 3.47 L Hgb 8.2 L Hct 28.5 L MCV 82.1 L MCH 23.6 L MCHC 28.8 L RDW 18.6 H Plt Count 249 MPV 9.5 Immature Gran % 0.4 Seg Neutrophils % 86.1 Lymphocytes % 12.2 Monocytes % 1.3 Eosinophils % 0.0 Basophils % 0.0 Neutrophils # 4.6 Lymphocytes # 0.7 Monocytes # 0.1 Eosinophils # 0.0 Basophils # 0.0 Platelet Estimate Normal Hypochromasia Present A Anisocytosis 1+ A Sodium Potassium Chloride Carbon Dioxide BUN Creatinine Est GFR ( Amer) Est GFR (Non-Af Amer) BUN/Creatinine Ratio Glucose Calculated Osmolality Calcium Ionized Calcium 1.48 H Iron % Saturation Transferrin Ferritin C-Reactive Protein 120 H Albumin Prealbumin TSH 0.537 PTH Intact 27.3 04/05/16 04/05/16 04:47 04:47 WBC RBC Hgb Hct MCV MCH MCHC RDW Plt Count MPV Immature Gran % Seg Neutrophils % Lymphocytes % Monocytes % Eosinophils % Basophils % Neutrophils # Lymphocytes # Monocytes # Eosinophils # Basophils # Platelet Estimate Hypochromasia Anisocytosis Sodium 135 L Potassium 3.6 Chloride 109 Carbon Dioxide 17 L BUN 32 H D Creatinine 1.19 H Est GFR ( Amer) 56 L Est GFR (Non-Af Amer) 46 L BUN/Creatinine Ratio 27 H Glucose 150 H Calculated Osmolality 290 Calcium 9.7 D Ionized Calcium Iron 44 L % Saturation 25 Transferrin 128 L Ferritin 279 H C-Reactive Protein Albumin 1.7 L Prealbumin 10.0 L TSH PTH Intact Consult Discharge Plan - Plan Referrals: Tate Finch MD [Non-Partnered Physician] - (Please follow up as schedule... )
--- NOTE | 2016-04-05 16:10 | Pulmonology Consult Note ---
Date of Encounter: 04/05/16 Time of Encounter: 14:30 Assessment and Plan (1) Lung mass Current Visit: Yes Status: Acute Patient with lung mass, discussed with son about the potential risk of the procedures whether it is CT guided or bronchoscopy, but he wants to know the diagnosis to treat his mother. I explained to him all the risks, alternatives, and benefits of the procedure and palliative care RN was available during the telephone call. Will arrange the procedure for patient. Please keep patient NPO post mid-night. (2) Alzheimer's dementia with behavioral disturbance Current Visit: Yes Status: Chronic Qualifiers: Alzheimer's disease onset: unspecified onset Qualified Code(s): G30.8 - Other Alzheimer's disease; F02.81 - Dementia in other diseases classified elsewhere with behavioral disturbance (3) COPD (chronic obstructive pulmonary disease) with emphysema Current Visit: Yes Status: Chronic Taper steroid and will add Symbicort. Qualifiers: Emphysema type: centrilobular Qualified Code(s): J43.2 - Centrilobular emphysema History of Present Illness Consult date: 04/05/16 Requesting physician: Neto Heath Reason for consult: lung mass Chief complaint: Dyspnea History of present illness: This history is taken from son and the chart, patient has alzheimer dementia and not able to give a reliable history. Patient with history of copd came to the ER for hypoxia and hypotension. Patient was found to have a lung mass and pulmonary consultation was requested because her son wants to find out diagnosis of the mass. Patient lives in an assisted living facility and was noted to be hypoxic on room air. Paitent denies any sympotoms. Past Med Surg Social Fam HX - Past Medical History Medical history: COPD, dementia, diabetes, glaucoma Psychiatric history: other - Past Surgical History Surgical History: no surgical history - Social History Smoking Status: Current every day smoker Smokeless Tobacco Status: No Alcohol use: none Drug use: none - Family History Mother Living Status: Age at : 44 Hx Family Cardiac Disorders: Yes (mother) Hx Family Respiratory Disorders: Yes (mother) Hx Family Cancer: No Hx Family GI Disorders: No Hx Family Genitourinary Disorders: No Hx Family Endocrine Disorder: No Hx Family Musculoskeletal Disorders: No Hx Family Neuromuscular Disorders: No Hx Family Neurologic Disorders: No Hx Family HEENT Disorders: No Hx Family Autoimmune Disorders: No Hx Family Reproductive Disorders: No Hx Family Psychosocial Disorders: No Medications and Allergies Aspirin Enteric Coated [Aspirin EC] 81 mg PO DAILY 12/31/14 [History] Docusate [Colace] 100 mg PO HS 12/31/14 [History] Donepezil [Aricept] 10 mg PO HS 12/31/14 [History] Memantine [Namenda] 10 mg PO BID 12/31/14 [History] Multivitamin/Iron/Folic Acid [Centrum Complete Multivit Tab] 1 each PO DAILY 06/12 [History] Latanoprost [Xalatan] 1 drop BOTH EYES HS 11/30/15 [History] Quetiapine Fumarate [Seroquel] 200 mg PO HS 11/30/15 [History] Tizanidine HCl 2 mg PO BID PRN 11/30/15 [History] TraMADol [Ultram] 50 mg PO BID 11/30/15 [History] Acetaminophen [Tylenol Arthritis] 650 mg PO DAILY PRN 02/05/16 [History] Atorvastatin [Lipitor] 20 mg PO HS #30 tablet 02/05/16 [Rx] Collagenase Oint [Santyl] 1 appl TP DAILY 04/04/16 [History] Polyethylene Glycol 3350 [MiraLAX] 17 gm PO QAM 04/04/16 [History] Promethazine [Phenergan] 25 mg PO Q8HR PRN 04/04/16 [History] Allergies Sulfa (Sulfonamide Antibiotics) Allergy (Verified 02/05/16 11:02) Anaphylaxis Mantoux Allergy (Uncoded 04/03/16 23:44) See Comments All Systems: A 10-system review of systems was performed and is negative for pertinent findings except as documented above in the HPI. Review of Systems: Not able to obtain due to her dementia. Physical Examination Vital Signs: Vital Signs, Last 4 Hours Temp Pulse Resp BP Pulse Ox 04/05/16 15:42 97.2 F L 69 18 107/69 92 L General appearance: no acute distress Eyes: nonicteric ENT: oropharynx moist Effort: normal Auscultation: left: diminished breath sounds, right: clear Cardiovascular: regular rate and rhythm Gastrointestinal: normoactive bowel sounds Extremities: no cyanosis unable to assess due to mental status Results - Laboratory Findings CBC and BMP: 04/05/16 04:47 04/05/16 04:47 Abnormal lab findings: Abnormal lab results RBC 3.47 M/mcL (3.82-4.97) L 04/05/16 04:47 Hgb 8.2 g/dL (11.5-15.4) L 04/05/16 04:47 Hct 28.5 % (35.3-44.9) L 04/05/16 04:47 MCV 82.1 fL (83.0-100.0) L 04/05/16 04:47 MCH 23.6 pg (28.0-33.3) L 04/05/16 04:47 MCHC 28.8 g/dL (31.6-35.5) L 04/05/16 04:47 RDW 18.6 % (11.5-14.5) H 04/05/16 04:47 Hypochromasia Present (Not Present) A 04/05/16 04:47 Anisocytosis 1+ (Not Present) A 04/05/16 04:47 Microcytosis Present (Not Present) A 04/04/16 00:00 ESR 83 mm/hr (0-15) H 04/04/16 08:30 VBG pO2 57 mmHg (25-40) H 04/04/16 08:30 Sodium 135 mEq/L (136-145) L 04/05/16 04:47 Carbon Dioxide 17 mEq/L (19-29) L 04/05/16 04:47 BUN 32 mg/dL (7-20) H D 04/05/16 04:47 Creatinine 1.19 mg/dL (0.57-1.11) H 04/05/16 04:47 Est GFR ( Amer) 56 (> 60) L 04/05/16 04:47 Est GFR (Non-Af Amer) 46 (> 60) L 04/05/16 04:47 BUN/Creatinine Ratio 27 (6-26) H 04/05/16 04:47 Glucose 150 mg/dL (70-99) H 04/05/16 04:47 POC Glucose 99 (58-89) H 04/04/16 07:24 Ionized Calcium 1.48 mmol/L (1.15-1.35) H 04/04/16 08:30 Iron 44 mcg/dL (50-170) L 04/05/16 04:47 Transferrin 128 mg/dL (180-382) L 04/05/16 04:47 Ferritin 279 ng/ml (5-204) H 04/05/16 04:47 C-Reactive Protein 120 mg/L (Less than 5) H 04/04/16 08:30 Albumin 1.7 g/dL (3.5-5.0) L 04/05/16 04:47 Prealbumin 10.0 mg/dL (16.0-38.0) L 04/05/16 04:47 Urine Clarity Cloudy (Clear) A 04/04/16 00:08 Urine Blood Large (Negative) H 04/04/16 00:08 Urine Microscopic RBC 50-100 per hpf (0-3) H 04/04/16 00:08 Ur Squamous Epith Cells Many per lpf (None-Few) H 04/04/16 00:08 - Diagnostic Findings CT scan - chest: report reviewed, image reviewed - Clinical Findings Intake & Output: Intake & Output 04/05/16 04/05/16 04/05/16 07:59 15:59 23:59 Intake Total 1300 / 1300 650 / 650 Output Total 0 / 0 0 / 0 Balance 1300 / 1300 650 / 650 Weight 61.5 kg Consult Discharge Plan - Plan Referrals: Tate Finch MD [Non-Partnered Physician] - (Pt is ECF at [facility] and will be returning to that facility on DC )
[2016-04-05] MEDS: Budesonide/Formoterol 160/4.5 MDI IH SCH (20:15)
[2016-04-05] MEDS: Latanoprost 2.5 ML BOTTLE BOTH EYES SCH (21:26)
[2016-04-06] MEDS: MethylPREDNISolone 40 MG/ML VIAL IVP SCH ×4 (00:02→17:45)
[2016-04-06] MEDS: Piperacillin/Tazobactam 3.375 GM in D5% in Water (Mini-Bag+) 100 ML IVPB SCH ×3 (00:02→17:45)
[2016-04-06] MEDS: Levofloxacin 500 MG/100 ML 500 MG/100 ML BAG IVPB SCH (03:48)
[2016-04-06] MEDS: *HR* Heparin 5,000 UNIT/ML VIAL SQ SCH ×2 (06:28→17:45)
[2016-04-06 07:26] LABS: BUN/Creatinine Ratio 27 (6-26); Blood Urea Nitrogen 28 mg/dL (7-20); Calcium 8.6 mg/dL (8.6-10.8); Carbon Dioxide 17 mEq/L (19-29); Chloride 112 mEq/L (98-109); Glucose 102 mg/dL (70-99); Immature Granulocytes % 0.5 % (0-4); Lymphocytes # 0.9 K/mcL (0.6-4.6); Lymphocytes % 10.9 %; Mean Corpuscular HGB Conc 30.8 g/dL (31.6-35.5); Mean Corpuscular Hemoglobin 24.1 pg (28.0-33.3); Mean Corpuscular Volume 78.3 fL (83.0-100.0); Mean Platelet Volume 9.5 fL (9.4-12.4); Monocytes # 0.3 K/mcL (0.0-1.3); Monocytes % 3.3 %; Neutrophils # 6.7 K/mcL (1.6-8.9); Osmolality,Calculated 294 (280-300); Platelet Count 309 K/mcL (140-400); Potassium 3.1 mEq/L (3.5-4.5); Red Blood Count 3.32 M/mcL (3.82-4.97); Red Cell Distribution Width 18.8 % (11.5-14.5); Segmented Neutrophils % 85.3 %; Sodium 139 mEq/L (136-145); eGFR For African Americans > 60 (> 60); eGFR For Non-African Americans 55 (> 60)
[2016-04-06] MEDS: Aspirin Enteric Coated 81 MG Tablet PO SCH (07:46)
[2016-04-06] MEDS: Pantoprazole 40 MG VIAL IVP SCH (07:46)
[2016-04-06] MEDS: Nicotine 21 MG PATCH.TD24 TD SCH (07:47)
[2016-04-06] MEDS: Ferrous Sulfate Oral Soln 300 MG/5 ML UDC PO SCH (07:47)
[2016-04-06 07:58] LABS: Anisocytosis 1+ (Not Present); Hypochromasia Present (Not Present); Platelet Estimate Normal (Normal)
--- NOTE | 2016-04-06 08:02 | Palliative Progress Note ---
Date of Encounter: 04/06/16 Time of Encounter: 07:15 - Assessment and plan (1) Constipation by delayed colonic transit Current Visit: Yes Status: Acute Assessment and plan: Patient has had a bowel movement continue current bowel regimen. (2) Cancer associated pain Current Visit: Yes Status: Acute Assessment and plan: Under control currently patient is not even using any medications for pain at this time. (3) Acute and chronic respiratory failure with hypoxia Current Visit: Yes Status: Acute Assessment and plan: This is slowly resolving continue current medications per hospitalist plan. (4) Alzheimer's dementia Current Visit: Yes Status: Acute Assessment and plan: No significant changes continue to monitor. Qualifiers: Alzheimer's disease onset: early-onset Dementia behavioral disturbance: with behavioral disturbance Qualified Code(s): G30.0 - Alzheimer's disease with early onset; F02.81 - Dementia in other diseases classified elsewhere with behavioral disturbance (5) Counseling regarding advanced care planning and goals of care Current Visit: Yes Status: Acute Assessment and plan: CODE STATUS DNR CCA, family has discussed and wishes to have options regarding the cancer. Cause could be his plan for for today. - Time Spent With Patient Total time spent is greater than 50% in coordination of care (as documented) at patient's floor/unit and/or counseling patient: - Constitutional Vitals: Abnormal lab results RBC 3.32 M/mcL (3.82-4.97) L 04/06/16 07:01 Hgb 8.0 g/dL (11.5-15.4) L 04/06/16 07:01 Hct 26.0 % (35.3-44.9) L 04/06/16 07:01 MCV 78.3 fL (83.0-100.0) L 04/06/16 07:01 MCH 24.1 pg (28.0-33.3) L 04/06/16 07:01 MCHC 30.8 g/dL (31.6-35.5) L 04/06/16 07:01 RDW 18.8 % (11.5-14.5) H 04/06/16 07:01 Hypochromasia Present (Not Present) A 04/06/16 07:01 Anisocytosis 1+ (Not Present) A 04/06/16 07:01 Microcytosis Present (Not Present) A 04/04/16 00:00 ESR 83 mm/hr (0-15) H 04/04/16 08:30 VBG pO2 57 mmHg (25-40) H 04/04/16 08:30 Potassium 3.1 mEq/L (3.5-4.5) L 04/06/16 07:01 Chloride 112 mEq/L (98-109) H 04/06/16 07:01 Carbon Dioxide 17 mEq/L (19-29) L 04/06/16 07:01 BUN 28 mg/dL (7-20) H 04/06/16 07:01 Est GFR (Non-Af Amer) 55 (> 60) L 04/06/16 07:01 BUN/Creatinine Ratio 27 (6-26) H 04/06/16 07:01 Glucose 102 mg/dL (70-99) H 04/06/16 07:01 POC Glucose 99 (58-89) H 04/04/16 07:24 Ionized Calcium 1.48 mmol/L (1.15-1.35) H 04/04/16 08:30 Iron 44 mcg/dL (50-170) L 04/05/16 04:47 Transferrin 128 mg/dL (180-382) L 04/05/16 04:47 Ferritin 279 ng/ml (5-204) H 04/05/16 04:47 C-Reactive Protein 120 mg/L (Less than 5) H 04/04/16 08:30 Albumin 1.7 g/dL (3.5-5.0) L 04/05/16 04:47 Prealbumin 10.0 mg/dL (16.0-38.0) L 04/05/16 04:47 Urine Clarity Cloudy (Clear) A 04/04/16 00:08 Urine Blood Large (Negative) H 04/04/16 00:08 Urine Microscopic RBC 50-100 per hpf (0-3) H 04/04/16 00:08 Ur Squamous Epith Cells Many per lpf (None-Few) H 04/04/16 00:08 General appearance: Present: no acute distress - Head Head exam: Present: atraumatic, normal inspection - Eye Eye exam: Present: normal appearance - ENT ENT exam: Present: mucous membranes moist - Respiratory Respiratory exam: Present: decreased breath sounds - Cardiovascular Cardiovascular exam: Present: RRR - GI/Abdominal GI/Abdominal exam: Present: normal bowel sounds, soft. Absent: tenderness - Extremities Exam Extremities exam: Present: normal inspection. Absent: pedal edema, tenderness - Neurological Exam Neurological exam: Present: alert, altered - Psychiatric Psychiatric exam: Absent: agitated, anxious - Skin Skin exam: Present: dry, warm Palliative Quality Palliative Quality: Screen for Code Status: Yes (Trying to reach next of kin), Screen for Goals of Care: Yes (Awaiting next of kin), Screen for Pain: Yes, If Pain Regimen Started, Initiate Bowel Regimen: Yes, Screen for Nausea/Vomitting: Yes Code Status: 04/04/16 03:26 DNR [Resuscitation Status: Active] [RES] Routine Comment: Resuscitation Status: DNR-Comfort Care-Arrest - Labs CBC & Chem 7: 04/06/16 07:01 04/06/16 07:01 Labs: Laboratory Results - last 24 hr 04/06/16 04/06/16 07:01 07:01 WBC 7.8 RBC 3.32 L Hgb 8.0 L Hct 26.0 L MCV 78.3 L MCH 24.1 L MCHC 30.8 L RDW 18.8 H Plt Count 309 MPV 9.5 Immature Gran % 0.5 Seg Neutrophils % 85.3 Lymphocytes % 10.9 Monocytes % 3.3 Eosinophils % 0.0 Basophils % 0.0 Neutrophils # 6.7 Lymphocytes # 0.9 Monocytes # 0.3 Eosinophils # 0.0 Basophils # 0.0 Platelet Estimate Normal Hypochromasia Present A Anisocytosis 1+ A Sodium 139 Potassium 3.1 L Chloride 112 H Carbon Dioxide 17 L BUN 28 H Creatinine 1.02 Est GFR ( Amer) > 60 Est GFR (Non-Af Amer) 55 L BUN/Creatinine Ratio 27 H Glucose 102 H Calculated Osmolality 294 Calcium 8.6 Consult Discharge Plan - Plan Referrals: Tate Finch MD [Non-Partnered Physician] - (Pt is ECF at [facility] and will be returning to that facility on DC )
--- NOTE | 2016-04-06 09:25 | Internal Med Progress Note ---
<Neto Heath - Last Filed: 04/06/16 12:36> Date of Encounter: 04/06/16 Time of Encounter: 09:15 - Assessment and plan (1) Healthcare-associated pneumonia Current Visit: Yes Status: Acute Assessment and plan: Criteria with setting of ECF, along with Chest CT Large left upper lobe mass measuring 9.6 x 8.9 cm previously measuring 6.7 x 8.8 cm. The mass has resulted in encasement and occlusion of the left upper lobe bronchus. There are postobstructive changes within the left upper lobe. Suspect post-obstructive component as well. Vanc discontinued 04/05/16 Sputum ordered but may need to obtain via bronch. Cont Zosyn and Levaquin. (2) Hypercalcemia of malignancy Current Visit: Yes Status: Acute Assessment and plan: Suspect 2* to lung mass - probable squamous cell lung cancer. Received IVF, then pamidronate on 04/04/15 Calcium levels decreased. Cont to monitor. (3) Lung mass Current Visit: Yes Status: Acute Assessment and plan: Large left upper lobe mass measuring 9.6 x 8.9 cm previously measuring 6.7 x 8.8 cm. Discussed with [employer] Way. Anticipate bronchoscopy, EBUS for further characterization. (4) Adult failure to thrive syndrome Current Visit: Yes Status: Acute Assessment and plan: Appreciate nutrition recs (5) Alzheimer's dementia Current Visit: Yes Status: Acute Assessment and plan: Cont Aricept Qualifiers: Alzheimer's disease onset: early-onset Dementia behavioral disturbance: with behavioral disturbance Qualified Code(s): G30.0 - Alzheimer's disease with early onset; F02.81 - Dementia in other diseases classified elsewhere with behavioral disturbance (6) DVT prophylaxis Current Visit: Yes Status: Acute Assessment and plan: Heparin 5000 U SC BID - Subjective Interval history: Patient seen/eval, she is now on room air, appears comfortable. When prompted if she is having any pain or discomfort, she voices 'no' She is able to affirm her name. She states she had chicken for dinner last night and it was good. Has been NPO since midnight, anticipate bronchoscopy later today. - Constitutional Vitals: Temp Pulse Resp BP Pulse Ox 97.5 F L 90 16 114/69 94 L 04/06/16 07:01 04/06/16 07:01 04/06/16 07:01 04/06/16 07:01 04/06/16 07:01 General appearance: Present: cachectic, A&O X 1 (To person) - Head Head exam: Present: atraumatic, normocephalic - Eye Eye exam: Present: EOMI, sclera anicteric - ENT ENT exam: Present: mucous membranes moist - Neck Neck exam general surgery: Present: supple, trachea midline - Respiratory Respiratory exam: Present: prolonged expiratory phase, rhonchi (diffuse all chin, dim HASEEB). Absent: respiratory distress - Cardiovascular Cardiovascular exam: Present: +S1, +S2. Absent: JVD - GI/Abdominal GI/Abdominal exam: Present: soft, no peritoneal signs. Absent: tenderness - Extremities Exam Extremities exam: Present: warm, radial pulses palpable and symetrical. Absent : pedal edema Internal Medicine: Result - Labs CBC & Chem 7: 04/06/16 07:01 04/06/16 07:01 Labs: Short CBC 04/06/16 Range/Units 07:01 WBC 7.8 (4.3-11.1) K/mcL Hgb 8.0 L (11.5-15.4) g/dL Hct 26.0 L (35.3-44.9) % Plt Count 309 (140-400) K/mcL Neutrophils # 6.7 (1.6-8.9) K/mcL BMP 04/06/16 07:01 Sodium 139 Potassium 3.1 L Chloride 112 H Carbon Dioxide 17 L BUN 28 H Creatinine 1.02 Glucose 102 H Calcium 8.6 - VTE Documentation of Mechanical Device: Intermittent pneumatic compression device Consult Discharge Plan - Plan Referrals: Tate Finch MD [Non-Partnered Physician] - (Pt is ECF at [facility] and will be returning to that facility on DC ) <Obdulio Nunn - Last Filed: 04/06/16 13:55> Date of Encounter: 04/06/16 - Constitutional Vitals: Temp Pulse Resp BP Pulse Ox 99.1 F 96 20 97/58 96 04/06/16 13:30 04/06/16 13:50 04/06/16 13:50 04/06/16 13:50 04/06/16 13:50 Internal Medicine: Result - Labs CBC & Chem 7: 04/06/16 07:01 04/06/16 07:01 Labs: Short CBC 04/06/16 Range/Units 07:01 WBC 7.8 (4.3-11.1) K/mcL Hgb 8.0 L (11.5-15.4) g/dL Hct 26.0 L (35.3-44.9) % Plt Count 309 (140-400) K/mcL Neutrophils # 6.7 (1.6-8.9) K/mcL BMP 04/06/16 07:01 Sodium 139 Potassium 3.1 L Chloride 112 H Carbon Dioxide 17 L BUN 28 H Creatinine 1.02 Glucose 102 H Calcium 8.6 - Attending Attestation I examined this patient and my medical decision-making was reviewed with the Resident Physician. I agree with the documented findings, disposition and treatment plan as described except to the extent set forth below. S/P bronchoscopy, report noted. Follow biopsy results. Continue with antibiotics. Follow cultures. Supplement potassium and magnesium.
[2016-04-06] MEDS ORDERED: Magnesium Sulfate 2 GM in D5% in Water 100 ML IVPB ONE (10:12)
[2016-04-06] MEDS: Budesonide/Formoterol 160/4.5 MDI IH SCH ×2 (10:34→21:31)
--- NOTE | 2016-04-06 12:32 | Anesthesia Evaluation PreOp ---
Date of Encounter: 04/06/16 Time of Encounter: 12:29 - Past History Planned Operation: Bronchoscopy Cardiac History: Denies any Significant Hx Pulmonary History: Smoker (51 years), COPD, Other (lung mass) FOOTBALL COACH History: Other (dementia) Other Medical History: Denies Any Significant HX Anesthesia History: Past Anesthesia (no prior surgery) Alcohol Use: none Drug use: none Medications and Allergies Aspirin Enteric Coated [Aspirin EC] 81 mg PO DAILY 12/31/14 [History] Docusate [Colace] 100 mg PO HS 12/31/14 [History] Donepezil [Aricept] 10 mg PO HS 12/31/14 [History] Memantine [Namenda] 10 mg PO BID 12/31/14 [History] Multivitamin/Iron/Folic Acid [Centrum Complete Multivit Tab] 1 each PO DAILY 06/12 [History] Latanoprost [Xalatan] 1 drop BOTH EYES HS 11/30/15 [History] Quetiapine Fumarate [Seroquel] 200 mg PO HS 11/30/15 [History] Tizanidine HCl 2 mg PO BID PRN 11/30/15 [History] TraMADol [Ultram] 50 mg PO BID 11/30/15 [History] Acetaminophen [Tylenol Arthritis] 650 mg PO DAILY PRN 02/05/16 [History] Atorvastatin [Lipitor] 20 mg PO HS #30 tablet 02/05/16 [Rx] Collagenase Oint [Santyl] 1 appl TP DAILY 04/04/16 [History] Polyethylene Glycol 3350 [MiraLAX] 17 gm PO QAM 04/04/16 [History] Promethazine [Phenergan] 25 mg PO Q8HR PRN 04/04/16 [History] Allergies Sulfa (Sulfonamide Antibiotics) Allergy (Verified 02/05/16 11:02) Anaphylaxis Mantoux Allergy (Uncoded 04/03/16 23:44) See Comments - Meds/Allergy Pre-op Review Medications Reviewed: Yes Allergies Reviewed: Yes Beta Blockers on Current Med List: No Anesthesia Results - Labs 04/06/16 07:01 04/06/16 07:01 - Imaging EKG: report reviewed (04/04/2016 SR, frequent PVC's) Additional studies: 02/05/2016 Echo technically limited study with incomplete imaging LV systolic function is normal, EF 60-65% not all segments could be evaluated unable to evaluate LV diastolic function RV size and function appear normal valves could not be thoroughly evaluated Anesthesia Exam Vital Signs/O2 Sat, Most Current Temp Pulse Resp BP Pulse Ox 97.6 F 83 16 106/66 96 04/06/16 10:37 04/06/16 10:37 04/06/16 10:37 04/06/16 10:37 04/06/16 10:37 Height: 5'7''/1.7 m Weight: 135 lbs/61.5 kg NPO (# of Hours): 8 Pain Scale: 0 Pain Scale Used: Numeric (1 - 10) - HEENT Mallampati: II Teeth: Edentulous Oral Opening: Greater than 3 - FOOTBALL COACH LOC: Confused - Cardiac Rhythm: Regular Murmur: None - Pulmonary Breath Sounds: bilateral Clear (diminshed BS) Respiratory Effort: Symmetrical Anesthesia Assess/Plan ASA Score: 3 Modified Mason Scale for Level of Consciousness: Anixous, agitated or restless Anesthetic Plan: General Monitoring Plan: Standard Monitors Recovery Plan: PACU
[2016-04-06] MEDS ORDERED: *HR* Propofol 200 MG/20 ML VIAL IVP ONE (12:58)
[2016-04-06] MEDS ORDERED: Lidocaine -MPF 4% 5 ML AMPUL ONE (12:58)
[2016-04-06] MEDS: *HR* EPINEPHrine 1 MG/10 ML SYRINGE INTRATRACH PRN ×2 (13:15→13:17)
[2016-04-06] MEDS ORDERED: Ondansetron 4 MG/2 ML VIAL ONE (13:41)
[2016-04-06] MEDS ORDERED: Ondansetron 4 MG/2 ML VIAL IVP ONE (13:43)
--- NOTE | 2016-04-06 14:05 | Anesthesia Evaluation Post Op ---
Date of Encounter: 04/06/16 Time of Encounter: 14:05 - Vital Signs Vital Signs: Vital Signs/O2 Sat, Most Current Temp Pulse Resp BP Pulse Ox 98.7 F 95 20 108/63 96 04/06/16 14:00 04/06/16 14:00 04/06/16 14:00 04/06/16 14:00 04/06/16 14:00 - Lungs Lungs: Clear Ascult./Percussion - Airway Airway: Non-obstructed - Cardiovascular Regular Rate - Mental Status Mental Status: Confused, Baseline Status - Pain Pain Scale: 0 Pain Scale used: Numeric (1 - 10) - Nausea Vomiting Nausea Vomiting: Responds to treatment with IV Meds - Hydration Hydration: NPO, Has not voided - Discharge PostOp Status: Transfer Patient to floor
[2016-04-06 15:18] LABS: Appearance of Body Fluid Cloudy (Clear); Volume of Body Fluid 16 mL
[2016-04-06] MEDS: *HR* OxyCODONE Immed Rel 5 MG TABLET PO PRN (21:02)
[2016-04-06] MEDS: Latanoprost 2.5 ML BOTTLE BOTH EYES SCH (21:10)
[2016-04-07] MEDS: Piperacillin/Tazobactam 3.375 GM in D5% in Water (Mini-Bag+) 100 ML IVPB SCH ×2 (00:07→09:36)
[2016-04-07] MEDS: MethylPREDNISolone 40 MG/ML VIAL IVP SCH ×4 (00:07→17:20)
[2016-04-07 04:14] LABS: Hematocrit 22.8 % (35.3-44.9); Immature Granulocytes % 1.3 % (0-4); Lymphocytes # 0.5 K/mcL (0.6-4.6); Lymphocytes % 9.8 %; Mean Corpuscular HGB Conc 30.7 g/dL (31.6-35.5); Mean Corpuscular Hemoglobin 23.6 pg (28.0-33.3); Mean Platelet Volume 8.6 fL (9.4-12.4); Monocytes # 0.2 K/mcL (0.0-1.3); Monocytes % 3.4 %; Neutrophils # 4.7 K/mcL (1.6-8.9); Platelet Count 256 K/mcL (140-400); Red Blood Count 2.96 M/mcL (3.82-4.97); Red Cell Distribution Width 19.2 % (11.5-14.5); Segmented Neutrophils % 85.5 %
[2016-04-07 04:26] LABS: Calcium 7.7 mg/dL (8.6-10.8); Magnesium 2.2 mg/dL (1.6-2.6); Potassium 3.4 mEq/L (3.5-4.5)
[2016-04-07] MEDS: *HR* Heparin 5,000 UNIT/ML VIAL SQ SCH ×2 (06:49→17:19)
[2016-04-07] MEDS: Budesonide/Formoterol 160/4.5 MDI IH SCH ×2 (08:09→20:34)
[2016-04-07] MEDS: Aspirin Enteric Coated 81 MG Tablet PO SCH (09:33)
[2016-04-07] MEDS: Ferrous Sulfate Oral Soln 300 MG/5 ML UDC PO SCH (09:34)
[2016-04-07] MEDS: Nicotine 21 MG PATCH.TD24 TD SCH (09:35)
--- NOTE | 2016-04-07 10:28 | Internal Med Progress Note ---
<Neto Heath - Last Filed: 04/07/16 13:55> Date of Encounter: 04/07/16 Time of Encounter: 10:26 - Assessment and plan (1) Healthcare-associated pneumonia Current Visit: Yes Status: Acute Assessment and plan: Criteria with setting of ECF, along with Chest CT Large left upper lobe mass measuring 9.6 x 8.9 cm previously measuring 6.7 x 8.8 cm. The mass has resulted in encasement and occlusion of the left upper lobe bronchus. There are postobstructive changes within the left upper lobe. Suspect post-obstructive component as well. Vanc discontinued 04/05/16 04/07/16 DC'd zosyn Cont levaquin. Bronch BAL GPC (2) Hypercalcemia of malignancy Current Visit: Yes Status: Acute Assessment and plan: Suspect 2* to lung mass - probable squamous cell lung cancer. Received IVF, then pamidronate on 04/04/15 Calcium levels decreased. Cont to monitor. Will give calcium carbonate x 1. (3) Lung mass Current Visit: Yes Status: Acute Assessment and plan: Large left upper lobe mass measuring 9.6 x 8.9 cm previously measuring 6.7 x 8.8 cm. 04/06/16 Bronchoscopy with EBUS, bx. Sent for cytology. BAL GPC (4) Adult failure to thrive syndrome Current Visit: Yes Status: Acute Assessment and plan: Appreciate nutrition recs (5) Alzheimer's dementia Current Visit: Yes Status: Acute Assessment and plan: Cont Aricept Qualifiers: Alzheimer's disease onset: early-onset Dementia behavioral disturbance: with behavioral disturbance Qualified Code(s): G30.0 - Alzheimer's disease with early onset; F02.81 - Dementia in other diseases classified elsewhere with behavioral disturbance (6) DVT prophylaxis Current Visit: Yes Status: Acute Assessment and plan: Heparin 5000 U SC BID - Subjective Interval history: Patient seen/eval, she is on room air, appears comfortable. Underwent bronch 04/06, multiple family members at bedside, updated. Patient affirms no chest pain , or fever, chills. Voices no other complaints. Per son, she would be wheelchair bound since 1 year ago. Not on supp oxygen. - Constitutional Vitals: Temp Pulse Resp BP Pulse Ox 97.3 F L 93 16 103/59 98 04/07/16 06:54 04/07/16 06:54 04/07/16 08:12 04/07/16 06:54 04/07/16 08:12 General appearance: Present: cachectic, cooperative, A&O X 1 (To person) - Head Head exam: Present: atraumatic, normocephalic - Eye Eye exam: Present: EOMI, sclera anicteric - ENT ENT exam: Present: mucous membranes moist - Neck Neck exam general surgery: Present: supple, trachea midline - Respiratory Respiratory exam: Present: rhonchi (dim HASEEB) - Cardiovascular Cardiovascular exam: Present: +S1, +S2. Absent: JVD - GI/Abdominal GI/Abdominal exam: Present: soft, no peritoneal signs. Absent: tenderness - Extremities Exam Extremities exam: Present: warm, radial pulses palpable and symetrical. Absent : pedal edema Internal Medicine: Result - Labs CBC & Chem 7: 04/07/16 04:05 04/07/16 04:05 Labs: Short CBC 04/07/16 Range/Units 04:05 WBC 5.5 (4.3-11.1) K/mcL Hgb 7.0 L (11.5-15.4) g/dL Hct 22.8 L (35.3-44.9) % Plt Count 256 (140-400) K/mcL Neutrophils # 4.7 (1.6-8.9) K/mcL BMP 04/07/16 04:05 Sodium 139 Potassium 3.4 L Chloride 111 H Carbon Dioxide 19 BUN 22 H Creatinine 1.19 H Glucose 159 H Calcium 7.7 L - VTE Documentation of Mechanical Device: Intermittent pneumatic compression device Consult Discharge Plan - Plan Referrals: Tate Finch MD [Non-Partnered Physician] - (Pt is ECF at [facility] and will be returning to that facility on DC ) <Obduloi Nunn - Last Filed: 04/07/16 15:56> Date of Encounter: 04/07/16 - Constitutional Vitals: Temp Pulse Resp BP Pulse Ox 97.8 F 94 16 95/50 97 04/07/16 15:32 04/07/16 15:32 04/07/16 15:32 04/07/16 15:32 04/07/16 15:32 Internal Medicine: Result - Labs CBC & Chem 7: 04/07/16 04:05 04/07/16 04:05 Labs: Short CBC 04/07/16 Range/Units 04:05 WBC 5.5 (4.3-11.1) K/mcL Hgb 7.0 L (11.5-15.4) g/dL Hct 22.8 L (35.3-44.9) % Plt Count 256 (140-400) K/mcL Neutrophils # 4.7 (1.6-8.9) K/mcL BMP 04/07/16 04:05 Sodium 139 Potassium 3.4 L Chloride 111 H Carbon Dioxide 19 BUN 22 H Creatinine 1.19 H Glucose 159 H Calcium 7.7 L - Attending Attestation I examined this patient and my medical decision-making was reviewed with the HAT CONDITIONER/PA/Advanced Practice Nurse/Resident Physician. I agree with the documented findings, disposition and treatment plan as described except to the extent set forth below. Lung mass, status post bronchoscopy and biopsy. Anemia with hemoglobin of 7.0, we will transfuse accordingly. Hypokalemia, will give potassium today. We will monitor electrolytes tomorrow in a.m. Discussed with family members in the day.
--- NOTE | 2016-04-07 11:14 | Palliative Progress Note ---
Date of Encounter: 04/07/16 Time of Encounter: 08:15 - Assessment and plan (1) Constipation by delayed colonic transit Current Visit: Yes Status: Acute Assessment and plan: Patient has had a bowel movement continue current bowel regimen. (2) Cancer associated pain Current Visit: Yes Status: Acute Assessment and plan: Under control currently patient has only used one dose of medication that was yesterday. It worked. (3) Acute and chronic respiratory failure with hypoxia Current Visit: Yes Status: Acute Assessment and plan: This is slowly resolving continue current medications per hospitalist plan. (4) Alzheimer's dementia Current Visit: Yes Status: Acute Assessment and plan: No significant changes continue to monitor. Qualifiers: Alzheimer's disease onset: early-onset Dementia behavioral disturbance: with behavioral disturbance Qualified Code(s): G30.0 - Alzheimer's disease with early onset; F02.81 - Dementia in other diseases classified elsewhere with behavioral disturbance (5) Counseling regarding advanced care planning and goals of care Current Visit: Yes Status: Acute Assessment and plan: CODE STATUS DNR CCA, family has discussed and wishes to have options regarding the cancer. Still awaiting results from the bronchoscopy to discuss further goals of care. - Time Spent With Patient Total time spent is greater than 50% in coordination of care (as documented) at patient's floor/unit and/or counseling patient: - Subjective Interval history: No complaints at this morning. No results back on biopsies from yesterday. He is eating, having bowel movements, and saturation is within normal limits on oxygen. No shortness of breath. - Constitutional Vitals: Abnormal lab results RBC 2.96 M/mcL (3.82-4.97) L 04/07/16 04:05 Hgb 7.0 g/dL (11.5-15.4) L 04/07/16 04:05 Hct 22.8 % (35.3-44.9) L 04/07/16 04:05 MCV 77.0 fL (83.0-100.0) L 04/07/16 04:05 MCH 23.6 pg (28.0-33.3) L 04/07/16 04:05 MCHC 30.7 g/dL (31.6-35.5) L 04/07/16 04:05 RDW 19.2 % (11.5-14.5) H 04/07/16 04:05 MPV 8.6 fL (9.4-12.4) L 04/07/16 04:05 Lymphocytes # 0.5 K/mcL (0.6-4.6) L 04/07/16 04:05 Hypochromasia Present (Not Present) A 04/06/16 07:01 Anisocytosis 1+ (Not Present) A 04/06/16 07:01 Microcytosis Present (Not Present) A 04/04/16 00:00 ESR 83 mm/hr (0-15) H 04/04/16 08:30 VBG pO2 57 mmHg (25-40) H 04/04/16 08:30 Potassium 3.4 mEq/L (3.5-4.5) L 04/07/16 04:05 Chloride 111 mEq/L (98-109) H 04/07/16 04:05 BUN 22 mg/dL (7-20) H 04/07/16 04:05 Creatinine 1.19 mg/dL (0.57-1.11) H 04/07/16 04:05 Est GFR ( Amer) 56 (> 60) L 04/07/16 04:05 Est GFR (Non-Af Amer) 46 (> 60) L 04/07/16 04:05 Glucose 159 mg/dL (70-99) H 04/07/16 04:05 POC Glucose 99 (58-89) H 04/04/16 07:24 Calcium 7.7 mg/dL (8.6-10.8) L 04/07/16 04:05 Ionized Calcium 1.48 mmol/L (1.15-1.35) H 04/04/16 08:30 Iron 44 mcg/dL (50-170) L 04/05/16 04:47 Transferrin 128 mg/dL (180-382) L 04/05/16 04:47 Ferritin 279 ng/ml (5-204) H 04/05/16 04:47 C-Reactive Protein 120 mg/L (Less than 5) H 04/04/16 08:30 Albumin 1.7 g/dL (3.5-5.0) L 04/05/16 04:47 Prealbumin 10.0 mg/dL (16.0-38.0) L 04/05/16 04:47 Procalcitonin 0.22 ng/mL (<=0.10) H 04/04/16 08:30 Urine Clarity Cloudy (Clear) A 04/04/16 00:08 Urine Blood Large (Negative) H 04/04/16 00:08 Urine Microscopic RBC 50-100 per hpf (0-3) H 04/04/16 00:08 Ur Squamous Epith Cells Many per lpf (None-Few) H 04/04/16 00:08 Fluid Appearance Cloudy (Clear) A 04/06/16 14:01 - Head Head exam: Present: atraumatic, normal inspection - Eye Eye exam: Present: normal appearance - ENT ENT exam: Present: mucous membranes moist - Respiratory Respiratory exam: Present: decreased breath sounds - Cardiovascular Cardiovascular exam: Present: irregular rhythm - GI/Abdominal GI/Abdominal exam: Present: normal bowel sounds, soft. Absent: tenderness - Extremities Exam Extremities exam: Present: normal inspection. Absent: pedal edema, tenderness - Neurological Exam Neurological exam: Present: alert - Psychiatric Psychiatric exam: Present: normal affect, normal mood. Absent: agitated, anxious - Skin Skin exam: Present: dry, warm Palliative Quality Palliative Quality: Screen for Code Status: Yes (Trying to reach next of kin), Screen for Goals of Care: Yes (Awaiting next of kin), Screen for Pain: Yes, If Pain Regimen Started, Initiate Bowel Regimen: Yes, Screen for Nausea/Vomitting: Yes Code Status: 04/04/16 03:26 DNR [Resuscitation Status: Active] [RES] Routine Comment: Resuscitation Status: DNR-Comfort Care-Arrest - Labs CBC & Chem 7: 04/07/16 04:05 04/07/16 04:05 Labs: Laboratory Results - last 24 hr 04/04/16 04/06/16 04/07/16 08:30 14:01 04:05 WBC 5.5 RBC 2.96 L Hgb 7.0 L Hct 22.8 L MCV 77.0 L MCH 23.6 L MCHC 30.7 L RDW 19.2 H Plt Count 256 MPV 8.6 L Immature Gran % 1.3 Seg Neutrophils % 85.5 Lymphocytes % 9.8 Monocytes % 3.4 Eosinophils % 0.0 Basophils % 0.0 Neutrophils # 4.7 Lymphocytes # 0.5 L Monocytes # 0.2 Eosinophils # 0.0 Basophils # 0.0 Sodium Potassium Chloride Carbon Dioxide BUN Creatinine Est GFR ( Amer) Est GFR (Non-Af Amer) BUN/Creatinine Ratio Glucose Calculated Osmolality Calcium Magnesium Procalcitonin 0.22 H Fluid Source Left upper lobe lung Fluid Volume 16 Fluid Appearance Cloudy A Fluid RBC 0.072 Fld Tot Nucleated Cell 544 Fluid Seg Neutrophil % 95.0 Fld Band Neutrophil % Test Not Performed Fluid Lymphocytes % 3.0 Fluid Monocytes % Test Not Performed Fluid Eosinophils % Test Not Performed Fluid Basophils % Test Not Performed Fluid Other Cells % 2.0 04/07/16 04:05 WBC RBC Hgb Hct MCV MCH MCHC RDW Plt Count MPV Immature Gran % Seg Neutrophils % Lymphocytes % Monocytes % Eosinophils % Basophils % Neutrophils # Lymphocytes # Monocytes # Eosinophils # Basophils # Sodium 139 Potassium 3.4 L Chloride 111 H Carbon Dioxide 19 BUN 22 H Creatinine 1.19 H Est GFR ( Amer) 56 L Est GFR (Non-Af Amer) 46 L BUN/Creatinine Ratio 18 Glucose 159 H Calculated Osmolality 295 Calcium 7.7 L Magnesium 2.2 Procalcitonin Fluid Source Fluid Volume Fluid Appearance Fluid RBC Fld Tot Nucleated Cell Fluid Seg Neutrophil % Fld Band Neutrophil % Fluid Lymphocytes % Fluid Monocytes % Fluid Eosinophils % Fluid Basophils % Fluid Other Cells % Consult Discharge Plan - Plan Referrals: Tate Finch MD [Non-Partnered Physician] - (Pt is ECF at [facility] and will be returning to that facility on DC )
[2016-04-07] MEDS ORDERED: Potassium Chloride Elixir 20 MEQ/15 ML UDC PO ONE (11:18)
[2016-04-07] MEDS: levoFLOXacin 500 MG TABLET PO SCH (12:27)
[2016-04-07] MEDS: Latanoprost 2.5 ML BOTTLE BOTH EYES SCH (20:50)
[2016-04-08] MEDS: MethylPREDNISolone 40 MG/ML VIAL IVP SCH ×3 (00:07→11:06)
[2016-04-08 04:34] LABS: Basophils % 0.1 %; Hematocrit 29.9 % (35.3-44.9); Lymphocytes # 0.7 K/mcL (0.6-4.6); Lymphocytes % 9.3 %; Mean Corpuscular HGB Conc 30.8 g/dL (31.6-35.5); Mean Corpuscular Hemoglobin 24.4 pg (28.0-33.3); Mean Corpuscular Volume 79.3 fL (83.0-100.0); Mean Platelet Volume 9.2 fL (9.4-12.4); Monocytes # 0.3 K/mcL (0.0-1.3); Monocytes % 4.6 %; Nucleated Red Blood Cells 0.3 /100 WBC (0); Platelet Count 284 K/mcL (140-400); Red Blood Count 3.77 M/mcL (3.82-4.97); Red Cell Distribution Width 18.9 % (11.5-14.5)
[2016-04-08 04:36] LABS: Hemoglobin 9.2 g/dL (11.5-15.4)
[2016-04-08 04:40] LABS: BUN/Creatinine Ratio 22 (6-26); Blood Urea Nitrogen 19 mg/dL (7-20); Calcium 7.1 mg/dL (8.6-10.8); Carbon Dioxide 21 mEq/L (19-29); Chloride 110 mEq/L (98-109); Glucose 137 mg/dL (70-99); Osmolality,Calculated 292 (280-300); Potassium 3.5 mEq/L (3.5-4.5); Sodium 139 mEq/L (136-145); eGFR For African Americans > 60 (> 60); eGFR For Non-African Americans > 60 (> 60)
[2016-04-08] MEDS: *HR* OxyCODONE Immed Rel 5 MG TABLET PO PRN (06:57)
[2016-04-08] MEDS: *HR* Heparin 5,000 UNIT/ML VIAL SQ SCH (06:57)
[2016-04-08] MEDS: Budesonide/Formoterol 160/4.5 MDI IH SCH (08:30)
--- NOTE | 2016-04-08 09:10 | Discharge Summary ---
Addendum entered and electronically signed by Neto Heath DO 04/08/16 14:50: Call placed to Bib Suarez (son) , updated him on course, including MSSA. Patient will complete course of antibiotics. She will follow-up at [facility] for biopsy results. He voiced understanding and agreement with plan of care. Original Note: <Neto Heath - Last Filed: 04/08/16 12:45> Date of Encounter: 04/08/16 Time of Encounter: 08:40 - Discharge Diagnosis (1) Healthcare-associated pneumonia Priority: Primary Status: Acute (2) Hypercalcemia of malignancy Priority: Primary Status: Resolved (3) Lung mass Priority: Primary Status: Chronic (4) Adult failure to thrive syndrome Priority: Secondary Status: Chronic (5) Alzheimer's dementia Priority: Secondary Status: Chronic Qualifiers: Alzheimer's disease onset: early-onset Dementia behavioral disturbance: with behavioral disturbance Qualified Code(s): G30.0 - Alzheimer's disease with early onset; F02.81 - Dementia in other diseases classified elsewhere with behavioral disturbance (6) DVT prophylaxis Priority: Secondary Status: Acute - Discharge Medications Prescriptions: OxyCODONE Immed Rel [Roxicodone 5 MG] 5 mg PO Q6HR PRN #80 tablet PRN Reason: Moderate Pain (4-6) Albuterol Neb [Proventil Neb] 2.5 mg IH Q2H PRN #1 inhsol PRN Reason: Shortness Of Breath/Wheezing Budesonide/Formoterol 160/4.5 [Symbicort 160/4.5] 2 puff IH BIDR #1 inhaler Ferrous Sulfate Oral Soln 300 mg PO DAILY #90 udc Levofloxacin [Levaquin] 500 mg PO DAILY #3 tablet Nicotine Patch [Nicoderm] 21 mg TD DAILY #30 patch.td24 Home Medications: Aspirin Enteric Coated [Aspirin EC] 81 mg PO DAILY 12/31/14 [History] Docusate [Colace] 100 mg PO HS 12/31/14 [History] Donepezil [Aricept] 10 mg PO HS 12/31/14 [History] Memantine [Namenda] 10 mg PO BID 12/31/14 [History] Multivitamin/Iron/Folic Acid [Centrum Complete Multivit Tab] 1 each PO DAILY 06/12 [History] Latanoprost [Xalatan] 1 drop BOTH EYES HS 11/30/15 [History] Quetiapine Fumarate [Seroquel] 200 mg PO HS 11/30/15 [History] Tizanidine HCl 2 mg PO BID PRN 11/30/15 [History] Acetaminophen [Tylenol Arthritis] 650 mg PO DAILY PRN 02/05/16 [History] Atorvastatin [Lipitor] 20 mg PO HS #30 tablet 02/05/16 [Rx] Collagenase Oint [Santyl] 1 appl TP DAILY 04/04/16 [History] Polyethylene Glycol 3350 [MiraLAX] 17 gm PO QAM 04/04/16 [History] Promethazine [Phenergan] 25 mg PO Q8HR PRN 04/04/16 [History] Albuterol Neb [Proventil Neb] 2.5 mg IH Q2H PRN #1 inhsol 04/08/16 [Rx] Budesonide/Formoterol 160/4.5 [Symbicort 160/4.5] 2 puff IH BIDR #1 inhaler 12/15 [Rx] Ferrous Sulfate Oral Soln 300 mg PO DAILY #90 udc 04/08/16 [Rx] Levofloxacin [Levaquin] 500 mg PO DAILY #3 tablet 04/08/16 [Rx] Nicotine Patch [Nicoderm] 21 mg TD DAILY #30 patch.td24 04/08/16 [Rx] OxyCODONE Immed Rel [Roxicodone 5 MG] 5 mg PO Q6HR PRN #80 tablet 04/08/16 [Rx] Allergies/Adverse Reactions: Allergies Sulfa (Sulfonamide Antibiotics) Allergy (Verified 02/05/16 11:02) Anaphylaxis Mantoux Allergy (Uncoded 04/03/16 23:44) See Comments Date of admission: 04/04/16 02:14 Primary care physician: PCP NO Consults: 04/04/16 03:11 Consult to Nutrition [CONS] Routine Comment: Consulting Provider: NUTRITION Reason for Dietary Consult: Supplemental Nutrition 04/04/16 03:35 Consult to Nurse Navigator [CONS] Routine Comment: 04/04/16 08:49 Consult to Palliative Care [CONS] Routine Comment: Dementia, inc pulm mass, refused bx, goals of care Consulting Provider: [facility] [place] 04/04/16 10:59 Consult to Paper Cone Machine Tender [CONS] Routine Reason for SW Consult: Advanced Alzheimer's, from ECF, had refused lung mass biopsy, possible palliative placement. Unable to reach [facility]. 04/05/16 13:07 Consult to Pulmonology [CONS] Routine Consulting Provider: [facility] [place] Reason for Consult: Enlarging HASEEB mass, now obstructing bronchus, consider bronchoscopy. D/W Dr. Way Call Completed: Yes 04/07/16 11:19 Consult to Occupational Therapy [CONS] Routine Comment: Evaluate, develop and implement POC Consult to Physical Therapy [CONS] Routine Comment: Evaluate, develop and implement POC Discharging clinician: Obdulio Nunn Anticipated date of discharge: 04/08/16 - Patient Status Disposition: Transfer SNF Condition: Fair Functional capacity at discharge: uses cane/walker Overall status at discharge: patient is progressing back to baseline - Discharge Instructions Follow Up With: [facility] [place] [Provider Group] - 04/22/16 11:00 am (in 2 weeks for biopsy results HASEEB mass) Tate Finch MD [Non-Partnered Physician] - (Pt is ECF at [facility] and will be returning to that facility on DC ) - Diet and Activity Activity: as per physical therapy, wear oxygen at all times Diet: advance to your usual diet Hospital course: Ms. Suarez is a 65 year old female with Alzheimer's dementia, previously evaluated for large left upper lobe mass, roughly 6.7 x 8.8cm. She had declined biopsy and further evaluation during that hospitalization. Patient would present to [place] with chief concern: dyspnea, with ABG disclosing hypoxemia, with interval Chest CT disclosing increase in mass, 9.8 x 8.9cm. Comorbidities would include: alzheimers dementia, glaucoma, COPD, and diabetes, current smoker. Initial impression healthcare-associated pneumonia given setting of post- obstructive bronchus, ECF environment, started on broad spectrum empiric antibiotics. Hypercalcemia likely in setting of malignancy, received IVF, then pamidronate, with improvement. Peripheral blood cultures no growth. Palliative team consulted for delineation of goals of care, had family meetings. The patient has severe Alzheimer's dementia and is able to affirm her wishes and needs with 1-2 word phrases. Oriented to self. Can recognize some family members. She previously had declined biopsy and further workup for the lung mass. Consensus by son (RENATA) to proceed possible bronchoscopy and biopsy of the lesion. Hospital course: Underwent bronchoscopy 04/06/16, large completely obstructing fungating, congested (edematous), friable (with contact bleeding), vascular and raised lesion found proximally, at the orifice in the apical posterior segment of the left upper lobe. Endobronchial biopsies performed, sent for pathology, pending. BAL discloses pansensitive staph spp. Transfused 1U PRBC for final Hgb 9.2 at baseline. Anemia likely 2* iron deficiency, chronic disease(inflammation) in setting of likely lung malignancy. She will continue 3 more days of Levaquin to finish course. At time of discharge, patient was clinically improved, hemodynamically stable, progressing to baseline, and agreeable with plan of care. Patient was advised to seek immediate medical attention for any new or worsening symptoms including but not limited to fever, chills, chest pain, chest pressure, dyspnea, cough, abdominal pain, nausea, vomiting, diarrhea, bloody stool, urine and the patient voiced understanding. Patient will follow-up with primary care physician: Tate Finch. She will also arrange for outpatient visit with [facility] pending biopsy results. Time spent discussing smoking cessation with patient: more than 10 minutes - Time Spent with Patient Total time spent providing and/or coordinating discharge services: Greater than 30 minutes - Constitutional Vitals: Temp Pulse Resp BP Pulse Ox 97.5 F L 72 16 118/75 98 04/08/16 07:56 04/08/16 07:56 04/08/16 08:30 04/08/16 07:56 04/08/16 08:30 General appearance: Present: cachectic, cooperative, A&O X 1 (To person, somewhat to situation. ) - Head Head exam: Present: atraumatic, normocephalic - Eye Eye exam: Present: EOMI, sclera anicteric - ENT ENT exam: Present: mucous membranes moist - Neck Neck exam general surgery: Present: supple, trachea midline - Respiratory Respiratory exam: Present: decreased breath sounds (left upper lobe), rhonchi ( scant diffuse). Absent: wheezes - Cardiovascular Cardiovascular exam: Present: +S1, +S2. Absent: JVD - GI/Abdominal GI/Abdominal exam: Present: soft, no peritoneal signs. Absent: tenderness - Extremities Exam Extremities exam: Present: warm, radial pulses palpable and symetrical. Absent : pedal edema - VTE Documentation of Mechanical Device: Intermittent pneumatic compression device <NunnObdulio R - Last Filed: 04/08/16 17:24> Date of Encounter: 04/08/16 Procedures/tests Complete & Pending: Procedures Performed prior 72 hours Category Date Time Status ECG 12 lead ECG [ECG] Routine Y 04/06/16 15:49 Completed ECG 12 lead ECG [ECG] Routine Y 04/07/16 21:46 Completed Date of admission: 04/04/16 02:14 Primary care physician: PCP NO Consults: 04/04/16 03:11 Consult to Nutrition [CONS] Routine Comment: Consulting Provider: NUTRITION Reason for Dietary Consult: Supplemental Nutrition 04/04/16 03:35 Consult to Nurse Navigator [CONS] Routine Comment: 04/04/16 08:49 Consult to Palliative Care [CONS] Routine Comment: Dementia, inc pulm mass, refused bx, goals of care Consulting Provider: [facility] [place] 04/04/16 10:59 Consult to Paper Cone Machine Tender [CONS] Routine Reason for SW Consult: Advanced Alzheimer's, from [facility], had refused lung mass biopsy, possible palliative placement. Unable to reach [facility]. 04/05/16 13:07 Consult to Pulmonology [CONS] Routine Consulting Provider: [facility] [place] Reason for Consult: Enlarging HASEEB mass, now obstructing bronchus, consider bronchoscopy. D/W Dr. Way Call Completed: Yes 04/07/16 11:19 Consult to Occupational Therapy [CONS] Routine Comment: Evaluate, develop and implement POC Consult to Physical Therapy [CONS] Routine Comment: Evaluate, develop and implement POC Hospital course: Ms. Suarez is a 65 year old female - Time Spent with Patient Total time spent providing and/or coordinating discharge services: - Constitutional Vitals: Temp Pulse Resp BP Pulse Ox 97.2 F L 106 16 100/70 99 04/08/16 11:45 04/08/16 11:45 04/08/16 11:45 04/08/16 11:45 04/08/16 11:45 - Attending Attestation I examined this patient and my medical decision-making was reviewed with the DRY SANDER/PA/Advanced Practice Nurse/Resident Physician. I agree with the documented findings, disposition and treatment plan as described except to the extent set forth below. lung mass, underwent bronchoscopy with biopsy over the weekend. Awaiting biopsy results. Initially admitted due to dehydration, hypercalcemia, JAKOB which have been corrected. Family to decide whether or not to proceed with workup or aggressive measures. Patient has underlying dementia and declined further investigation and therapy in the past. Palliative care involved. For discharge today to SNF. Will follow biopsy results with oncology as outpatient.
[2016-04-08] MEDS: Aspirin Enteric Coated 81 MG Tablet PO SCH (09:17)
[2016-04-08] MEDS: Ferrous Sulfate Oral Soln 300 MG/5 ML UDC PO SCH (09:17)
[2016-04-08] MEDS: Nicotine 21 MG PATCH.TD24 TD SCH (09:18)
[2016-04-08] MEDS: levoFLOXacin 500 MG TABLET PO SCH (09:25)
[2016-04-08 11:47] VITALS: BP 100/70
--- NOTE | 2016-04-08 12:33 | Physician Discharge Referral ---
<Neto Heath - Last Filed: 04/08/16 12:31> [facility]Care Referral Info Transfer To: [facility] Provider in Charge: Arline Provider in Charge after Transfer: PCP Institutional Level of Care: Skilled - Diagnosis (1) Healthcare-associated pneumonia Priority: Primary Status: Acute (2) Hypercalcemia of malignancy Priority: Primary Status: Resolved (3) Lung mass Priority: Primary Status: Chronic (4) Adult failure to thrive syndrome Priority: Secondary Status: Chronic (5) Alzheimer's dementia Priority: Secondary Status: Chronic (6) DVT prophylaxis Priority: Secondary Status: Acute Prognosis: Fair Aware of Diagnosis: Family Aware of Prognosis: Family - Transfer Medications Prescriptions: Albuterol Neb [Proventil Neb] 2.5 mg IH Q2H PRN #1 inhsol PRN Reason: Shortness Of Breath/Wheezing Budesonide/Formoterol 160/4.5 [Symbicort 160/4.5] 2 puff IH BIDR #1 inhaler Ferrous Sulfate Oral Soln 300 mg PO DAILY #90 udc Levofloxacin [Levaquin] 500 mg PO DAILY #3 tablet Nicotine Patch [Nicoderm] 21 mg TD DAILY #30 patch.td24 OxyCODONE Immed Rel [Roxicodone 5 MG] 5 mg PO Q6HR PRN #80 tablet PRN Reason: Moderate Pain (4-6) Home Medications: Aspirin Enteric Coated [Aspirin EC] 81 mg PO DAILY 12/31/14 [History] Docusate [Colace] 100 mg PO HS 12/31/14 [History] Donepezil [Aricept] 10 mg PO HS 12/31/14 [History] Memantine [Namenda] 10 mg PO BID 12/31/14 [History] Multivitamin/Iron/Folic Acid [Centrum Complete Multivit Tab] 1 each PO DAILY 06/12 [History] Latanoprost [Xalatan] 1 drop BOTH EYES HS 11/30/15 [History] Quetiapine Fumarate [Seroquel] 200 mg PO HS 11/30/15 [History] Tizanidine HCl 2 mg PO BID PRN 11/30/15 [History] Acetaminophen [Tylenol Arthritis] 650 mg PO DAILY PRN 02/05/16 [History] Atorvastatin [Lipitor] 20 mg PO HS #30 tablet 02/05/16 [Rx] Collagenase Oint [Santyl] 1 appl TP DAILY 04/04/16 [History] Polyethylene Glycol 3350 [MiraLAX] 17 gm PO QAM 04/04/16 [History] Promethazine [Phenergan] 25 mg PO Q8HR PRN 04/04/16 [History] Albuterol Neb [Proventil Neb] 2.5 mg IH Q2H PRN #1 inhsol 04/08/16 [Rx] Budesonide/Formoterol 160/4.5 [Symbicort 160/4.5] 2 puff IH BIDR #1 inhaler 12/15 [Rx] Ferrous Sulfate Oral Soln 300 mg PO DAILY #90 udc 04/08/16 [Rx] Levofloxacin [Levaquin] 500 mg PO DAILY #3 tablet 04/08/16 [Rx] Nicotine Patch [Nicoderm] 21 mg TD DAILY #30 patch.td24 04/08/16 [Rx] OxyCODONE Immed Rel [Roxicodone 5 MG] 5 mg PO Q6HR PRN #80 tablet 04/08/16 [Rx] Allergies/Adverse Reactions: Allergies Sulfa (Sulfonamide Antibiotics) Allergy (Verified 02/05/16 11:02) Anaphylaxis Mantoux Allergy (Uncoded 04/03/16 23:44) See Comments - Respiratory Orders Oxygen / L per min (3LNC) Smoking Cessation: Smoking cessation has been advised. For more information, call the [employer] Line at 4-167-ZXOO-NOW. - Advance Directives Living Will: No Power of Ware Finisher: No Code Status: DNR-Arrest - Mobility Orders Chair, Bedrest - Rehabiliation Orders Rehab Potential: Poor Rehab Orders: Sternal Precautions, ROM Exercises - Treatments Skin tear care topically daily PRN per policy - Diet Orders Pureed CERTIFICATION: I certify that the transfer of the above named patient to an Extended Care Facility is necessary for the continuing treatment of the diagnosis listed. The above information is true and accurate reflection of patient's current condition. Confidential - Redisclosure prohibited without a patient's written consent. <Obdulio Nunn - Last Filed: 04/08/16 17:24> - Respiratory Orders Smoking Cessation: Smoking cessation has been advised. For more information, call the [employer] Quit Line at 3-586-DUYC-NOW. CERTIFICATION: I certify that the transfer of the above named patient to an Extended Care Facility is necessary for the continuing treatment of the diagnosis listed. The above information is true and accurate reflection of patient's current condition. Confidential - Redisclosure prohibited without a patient's written consent.
--- NOTE | 2016-04-08 13:35 | Electrocardiograph Report ---
[facility] Test Date: 2016-04-06 Pat Name: LUIZ ALVAREZ Department: 112 Room: 2A Gender: F Cna Instructor: MICHAEL : 1950 Requested By: Obdulio Nunn Order Number: [id number] Reading MD: Sunny Armenta DO Measurements Intervals [place] Rate: 110 P: 74 [place]: 187 QRS: 40 QRSD: 82 T: 89 QT: 343 QTc: 408 Interpretive Statements Sinus tachycardia Possible anterior myocardial infarction, age undetermined Electronically Signed On 04-08-16 13:34:24 EST by Sunny Armenta DO
--- NOTE | 2016-04-08 15:07 | Electrocardiograph Report ---
[facility] Test Date: 2016-04-07 Pat Name: LUIZ ALVAREZ Department: 112 Room: [facility] Gender: F Veneer Gluer: XIMENA : 1950 Requested By: Obdulio Nunn Order Number: [id number] Reading MD: Sunny Armenta DO Measurements Intervals [place] Rate: 81 P: 75 [place]: 179 QRS: 48 QRSD: 85 T: 97 QT: 393 QTc: 431 Interpretive Statements Sinus rhythm Electronically Signed On 04-08-16 14:06:42 EST by Sunny Armenta DO
[2016-04-08] MEDS ORDERED: MethylPREDNISolone 40 MG/ML VIAL IVP SCH (23:00)
== END 2016-04-08 14:07 | DRG 140 ==
LOC: 2ANU 23:34 → EMEROO 23:34 → SUATTDRO 04-04 02:14 → OBSVTOIN 04-04 02:14 → 2ANU 04-04 02:32
PROVIDERS: ADMIT Internal Medicine; ATTEND Internal Medicine
PROC: ENDOLBX (2016-04-06 10:20)